=== PATIENT | female | born 1985 | race Caucasian/White ===

== ENCOUNTER → 2020-08-11 17:54 | Outpatient (CLI) | payer BC, SELFPAY ==
--- NOTE | ~2020-08-11 | MM_ITS ---
EXAMINATION: MM screening diana BI w neeraj HISTORY: Baseline screening mammogram TECHNIQUE: Craniocaudal and mediolateral oblique 3-D tomosynthesis images were obtained and synthetic 2-D images were generated. CAD analysis was submitted and interpreted. COMPARISON: None, baseline BREAST PARENCHYMAL COMPOSITION: There are scattered areas of fibroglandular density. FINDINGS: There is no evidence of suspicious mass, calcification, or architectural distortion to sugg est malignancy in either breast. IMPRESSION: 1. No mammographic evidence of malignancy. 2. Recommend routine screening mammography beginning at age 40. BI-RADS Category 1: Negative Reviewed, dictated and finalized at location A.
== END ==
PROVIDERS: PCP Nurse Practitioner Family; Visit Provider Nurse Practitioner
DX: Z12.31 Encounter for screening mammogram for malignant neoplasm of breast (principal)
CPT/HCPCS: 77063; 77067

== ENCOUNTER 2020-09-21 10:05 | Emergency (ER) | payer BC, SELFPAY ==
--- NOTE | ~2020-09-21 | XR_ITS ---
EXAMINATION: XR chest 2V EXAM DATE: 09/21/2020 10:36 INDICATION: cough, shortness of breath, hx. of mediastinal mass . TECHNIQUE: Frontal and lateral projections of the chest obtained and reviewed. Comparison is made to prior examination from 04/30/2019. FINDINGS: Previously seen mediastinal enlargement has normalized, correlate with history of treatmen t. The lungs are clear. There are no pleural effusions. The cardiomediastinal silhouette is within normal limits. There is no pneumothorax suspected. The bones and soft tissues are unremarkable. IMPRESSION: Unremarkable chest x-ray exam. Reviewed, dictated and finalized at location B. 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
--- NOTE | 2020-09-21 10:13 | ED.URI ---
HPI - URI/Sore Throat General Chief Complaint: Upper Respiratory Infection Stated Complaint: upper respiratory infection Time Seen by Provider: 09/21/20 10:13 Source: patient and RN notes reviewed History of Present Illness HPI Narrative: Patient is a 35-year-old female who presents the urgent care with complaints of intermittent shortness of breath and some chest tightness. Patient states that it started on Monday night with a severe sore throat that woke her up out of her sleep. Patient states the sore throat has since subsided. States that she had a low-grade fever a few days ago of 99 and took Tylenol with full relief. Patient states her daughter was also symptomatic with a sore throat and fever last week and her strep and Covid were both negative. Patient states that she is currently not working and stays home the majority of the time. Daughter is currently asymptomatic and no one else in the house has been sick. Patient reports of some postnasal drainage and mild wet cough. States that she does have a history of asthma and her inhaler has been decreasing her symptoms. Patient reports of also having a history of lymphoma with the mass still present in the chest. Patient is currently in remission. No other acute complaints. No acute distress noted. Patient aware of the plan of care. Some parts of this dictation were generated by voice recognition software and may contain typographical and/or grammatical inaccuracies. Related Data Home Medications Medication Instructions Recorded Confirmed escitalopram oxalate 20 mg PO DAILY 09/21/20 09/21/20 fluticasone propionate [Allergy 2 spray INTRANASAL DAILY 09/21/20 09/21/20 Relief (fluticasone)] Allergies Allergy/AdvReac Type Severity Reaction Status Date / Time cefaclor Allergy Mild RASH, GI Verified 09/21/20 10:23 UPSET erythromycin base Allergy Mild RASH, GI Verified 09/21/20 10:23 UPSET Penicillins Allergy Mild RASH, GI Verified 09/21/20 10:23 UPSET Review of Systems Review of Systems: Narrative: CONSTITUTIONAL: Denies fever, chills, or sweats. EYES: Denies visual changes, redness, or discharge. ENT: Reports of postnasal drainage CARDIOVASCULAR: Denies chest pain, palpitations, or edema. RESPIRATORY: Reports of wet cough with intermittent shortness of breath and dyspnea; intermittent mild chest tightness GASTROINTESTINAL: Reports a few episodes of loose stools without abdominal pain, nausea, vomiting GENITOURINARY: Denies dysuria or hematuria. SKIN: Denies rash or itching. MUSCULOSKELETAL: Denies back pain, joint pain; reports of upper back body aches NEUROLOGIC: Denies headache, numbness, or weakness. All other systems reviewed are negative, except as documented in HPI. [facility] Family History Family History (Updated 08/19/16 @ 14:26 by DOCTOR UNKNOWN) Father Diabetes mellitus Hypertension Family history of coronary artery disease Mother Asthma Other Family history of allergic disorder Family history of cardiovascular disease Family history of malignant neoplasm Social History Social History Smoking status: Never smoker Alcohol intake: current Comments At the time of my signature, I reviewed and agree with the nursing past medical, surgical, social, and family history. There is no relevant family history pertinent to the patient complaint. Exam Narrative: Exam Narrative: GENERAL: This is a well-nourished, well-developed patient, in no apparent distress. HEAD: normocephalic, atraumatic. EYES: PERRL. Sclera clear/white. Vision is grossly intact. EARS: External ears normal, auditory canals clear and without drainage, TMs normal without perforation. Hearing grossly intact. NOSE: External nose normal with no obvious nasal discharge, nares without redness, no rhinorrhea. THROAT: Mucous membranes moist, posterior pharynx clear. Mild postnasal drainage NECK: Neck supple CARDIOVASCULAR: Regular rate and rhythm without murmurs, gal
[2020-09-21 10:20] VITALS: BP 141/94; PULSE 97; RESP 24; TEMP 37; O2SAT 100
== END 2020-09-21 11:00 | disposition home or self-care (01) ==
PROVIDERS: Emergency Provider Nurse Practitioner Family; PCP Nurse Practitioner Family
DX: J06.9 Acute upper respiratory infection, unspecified (principal); I10 Essential (primary) hypertension; J45.909 Unspecified asthma, uncomplicated; E28.2 Polycystic ovarian syndrome; Z85.71 Personal history of Hodgkin lymphoma
CPT/HCPCS: 71046; 99213; G0463

== ENCOUNTER 2020-09-25 06:53 | Outpatient (NON) | payer BC, SELFPAY ==
[2020-09-26 23:02] LABS: SARS-CoV-2 RNA PCR Negative
== END 2020-09-25 06:54 ==
LOC: ANHCOVIDDT 07:10
PROVIDERS: PCP Nurse Practitioner Family; Visit Provider Nurse Practitioner Family
DX: Z20.828 Contact with and (suspected) exposure to other viral communicable diseases (principal); R05 Cough; J02.9 Acute pharyngitis, unspecified
CPT/HCPCS: 87635; C9803; U0003

== ENCOUNTER 2020-10-31 08:07 | Emergency (ER) | payer BC, SELFPAY ==
--- NOTE | ~2020-10-31 | XR_ITS ---
EXAMINATION: XR chest 2V DATE: 10/31/2020 08:53 INDICATION: Asthma and mediastinal mass presenting with 6 weeks of cough. TECHNIQUE: PA and lateral views of the chest were obtained. COMPARISON: Chest radiograph dated 09/21/2020 and 04/18/2019 FINDINGS: The lungs remain clear with no focal airspace opacities, pulmonary edema, pleural effusion or pneumot horax. The cardiomediastinal silhouette remains normal with prior resolution of the right superior me diastinal mass seen on the radiographs on 04/18/2019. Visualized bones and soft tissues are unremarkab le. IMPRESSION: 1. Normal chest radiograph. Reviewed, dictated and finalized at location A. 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 Normal chest radiograph.
[2020-10-31 08:21] VITALS: BP 135/87; PULSE 85; RESP 16; TEMP 37.2; O2SAT 98
--- NOTE | 2020-10-31 08:21 | ED.GENADULT ---
HPI - General Adult General Chief complaint: Upper Respiratory Infection Stated complaint: Cough Time Seen by Provider: 10/31/20 08:29 Source: patient Mode of arrival: ambulatory Limitations: no limitations History of Present Illness HPI narrative: 35-year-old female patient presents to the [facility] with complaints of a cough for the past 6 weeks. Patient does have a history of a mediastinal mass which she has been in remission for for over a year. Patient states she had a chest x-ray done about 5 weeks ago and was told that it was stable and did not change in size. Patient states she does have history of asthma and has been using her albuterol for her cough. Patient states that when her symptoms first started she did get Covid tested twice once with a rapid once with the PCR of both came back negative. Patient states that she did run some low-grade fevers in the beginning but now it is just an ongoing cough that has been waking her up at night. Patient states she was put on doxycycline by her doctor for 10 days and did slightly improved but the cough still remains. Denies any fevers, body aches or chills within the last couple of days. Patient does feel little short of breath and wheezy. Patient states she is coughing up some yellow things at times. Denies any abdominal pain, nausea, vomiting or diarrhea. Patient states she has been taking some [id number] Mucinex as well as DayQuil for her symptoms. Related Data Home Medications Medication Instructions Recorded Confirmed albuterol mcg INHALATION 10/31/20 Allergies Allergy/AdvReac Type Severity Reaction Status Date / Time cefaclor Allergy Mild RASH, GI Verified 10/31/20 08:27 UPSET erythromycin base Allergy Mild RASH, GI Verified 10/31/20 08:27 UPSET Penicillins Allergy Mild RASH, GI Verified 10/31/20 08:27 UPSET Review of Systems Review of Systems: Narrative: CONSTITUTIONAL: Denies fever, chills, or sweats. EYES: Denies visual changes, redness, or discharge. ENT: Denies rhinorrhea, congestion, sore throat, or otalgia. CARDIOVASCULAR: Denies chest pain, palpitations, or edema. RESPIRATORY: Positive cough with dyspnea. GASTROINTESTINAL: Denies abdominal pain, nausea, vomiting, or diarrhea. GENITOURINARY: Denies dysuria or hematuria. SKIN: Denies rash or itching. MUSCULOSKELETAL: Denies back pain, joint pain, or myalgia. NEUROLOGIC: Denies headache, numbness, or weakness. PSYCHIATRIC: Denies anxiety or depression. [facility] Past Medical History Medical History Anxiety Elevated BP without diagnosis of hypertension Hodgkin lymphoma Mediastinal mass Microscopic hematuria Mild persistent asthma without complication PCOS (polycystic ovarian syndrome) Vitamin D deficiency, unspecified Family History Family History Father Diabetes mellitus Hypertension Family history of coronary artery disease Mother Asthma Other Family history of allergic disorder Family history of cardiovascular disease Family history of malignant neoplasm Social History Social History Smoking status: Never smoker Alcohol intake: current Comments At the time of my signature I agree with nursing past medical history, surgical, social, and family history. There is no relevant family history pertinent to the presenting complaint. Exam Narrative: Exam Narrative: GENERAL: Well-appearing, well-nourished, and in no acute distress. HEAD: Normocephalic, atraumatic. EYES: PERRLA and EOMI. ENT: Nares clear, no rhinorrhea or epistaxis. Mucous membranes moist. NECK: Supple. No lymphadenopathy CHEST: Patient does have expiratory wheezing noted to the right lower lobe and expiratory and inspiratory wheezing noted to bilateral upper lobes on auscultation. No respiratory distress. Patient is able to talk in clear c
[2020-10-31] MEDS: IPRATROPIUM BR 0.02% INH SOLN 0.5 MG/2.5 ML VIAL INHALATION (08:57)
[2020-10-31] MEDS: ALBUTEROL SULFATE NEB 2.5 MG/3 ML INH INHALATION (09:04)
== END 2020-10-31 09:25 | disposition home or self-care (01) ==
PROVIDERS: Emergency Provider Nurse Practitioner Family; PCP Nurse Practitioner Family
DX: J20.8 Acute bronchitis due to other specified organisms (principal); E28.2 Polycystic ovarian syndrome; J45.30 Mild persistent asthma, uncomplicated; Z85.72 Personal history of non-Hodgkin lymphomas
CPT/HCPCS: 71046; 94640; 99213; G0463

== ENCOUNTER 2021-06-15 11:02 | Emergency (ER) | payer BC, SELFPAY ==
[2021-06-15] VITALS (7 sets, daily range): BP systolic 117–185; BP diastolic 88–125; PULSE 97–119; RESP 14–25; TEMP 36.3; O2SAT 99–100
--- NOTE | ~2021-06-15 | XR_ITS ---
EXAMINATION: XR chest 2V DATE: 06/15/2021 11:41 INDICATION: Cough. Palpitations. COVID-19 positive. TECHNIQUE: Frontal and lateral views of the chest were obtained. COMPARISON: Chest 2 views 10/31/2020 FINDINGS: The chest demonstrates clear lungs without pneumonia, pleural effusion, or pneumothorax. Th e heart size is normal. IMPRESSION: 1. No acute cardiopulmonary disease. Reviewed, dictated and finalized at location B.
--- NOTE | 2021-06-15 11:20 | ECG_ITS ---
Measurements Intervals [place] Rate: 115 P: 42 FL: 137 QRS: 24 QRSD: 89 T: -6 QT: 328 QTc: 454 Interpretive Statements SINUS TACHYCARDIA LOW QRS VOLTAGE IN PRECORDIAL LEADS BORDERLINE ST-T WAVE ABNORMALITY- INFERIOR LEADS BASELINE WANDER- II, III ABNORMAL ECG Electronically Signed On 06-15-2021 11:29:52 CDT by Umberto Peres D.O.
--- NOTE | 2021-06-15 12:24 | ED.ARRPALP ---
HPI - Arrhythmia/Palpitations History of Present Illness HPI narrative: 36 yo female presents to the ED with multiple complaints. She recently had COVID-19. During this time she was started on dexamethasone. A few days armond she began having various symptoms. She reports hyperactivity, insommnia, diaphoresis, tachycardia. She says that she feels like she could conquer the world. Additionally she mentions that she almost purchased some land that she does not need. She had similar, although milder symptoms when she was on dexamethasone in the past. She had her last dose about 1 week ago. Related Data Home Medications Medication Instructions Recorded Confirmed albuterol mcg INHALATION 10/31/20 Allergies Allergy/AdvReac Type Severity Reaction Status Date / Time cefaclor Allergy Mild RASH, GI Verified 06/15/21 12:40 UPSET erythromycin base Allergy Mild RASH, GI Verified 06/15/21 12:40 UPSET Penicillins Allergy Mild RASH, GI Verified 06/15/21 12:40 UPSET Review of Systems Review of Systems: All systems reviewed & are unremarkable except as noted in HPI and below Constitutional: Constitutional: Denies fever(s) and Denies weakness Eyes: Eyes: Reports no additional eye complaints ENT: Denies dizziness Cardiovascular: Cardiovascular: Reports chest pain (mild, anterior, better with massaging), Reports rapid heart rate and Denies radiating jaw, neck or arm pain Respiratory: Respiratory: Denies dyspnea Gastrointestinal: Gastrointestinal: Denies nausea Genitourinary: Genitourinary: Reports no additional female genitourinary complaints Musculoskeletal: Musculoskeletal: Denies back pain Neurologic: Denies confusion, Denies numbness and Denies weakness Psychiatric: Psychiatric: Reports abnormal sleep pattern, Denies homicidal ideation and Denies suicidal ideation Endocrine: Endocrine: Reports excessive sweating and Denies polyuria PMFSH Past Medical History Medical History Anxiety Elevated BP without diagnosis of hypertension Hodgkin lymphoma Mediastinal mass Microscopic hematuria Mild persistent asthma without complication PCOS (polycystic ovarian syndrome) Vitamin D deficiency, unspecified Family History Family History Father Diabetes mellitus Hypertension Family history of coronary artery disease Mother Asthma Other Family history of allergic disorder Family history of cardiovascular disease Family history of malignant neoplasm Social History Social History Smoking status: Never smoker Alcohol intake: current Gender identity (if verbalized by the patient): Female Exam Const: General: healthy appearing, no acute distress and alert Orientation/consciousness: patient oriented x3 Other: Diaphoretic HENMT: Head: normal to inspection General nose exam: Epistaxis present Face and sinus: normal facial exam and dry mucous membranes Eyes: Conjunctivae: conjunctivae normal Pupils: Equal, round and reactive pupils present EOM: EOMs intact bilaterally Neck: Neck: normal visual inspection Chest: Chest palpation & inspection: no tenderness Resp: Effort & Inspection: normal respiratory effort Auscultation: clear to auscultation bilaterally, no rales, no rhonchi and no wheezes Cardio: Jugular venous distension: no JVD Rate: tachycardic Rhythm: regular rhythm Heart sounds: no murmurs GI: Inspection: non-distended GI Palp: Yes Soft to palpation and No Tenderness to palpation present (GI) Skin: General skin exam: normal color Neuro: General: patient oriented x3, moves all extremities and CN's II-XI intact bilaterally Cognition (Neuro): normal cognition Speech: normal speech Extrem: General: no edema Psych: Appearance: grossly normal and well kempt Speech and movement: Clear speech present and Pressur
[2021-06-15] MEDS: SODIUM CHLORIDE 0.9% IV 1,000 ML 999 ML IV CONT (12:38)
[2021-06-15 12:41] LABS: Basophils Absolute Auto 0.1 K/mm3 (0.0-0.1); Basophils Percent Auto 0.6 % (0.2-1.2); Eosinophils Absolute Auto 0.2 K/mm3 (0-0.3); Eosinophils Percent Auto 2.1 % (0-4.4); Hematocrit 43.6 % (37.0-47.0); Hemoglobin 14.4 g/dL (12.0-15.0); Immature Granulocyte Absolute 0.03 K/mm3 (0.00-0.031); Immature Granulocyte Percent A 0.4 % (0-0.5); Lymphocytes Absolute Auto 2.37 K/mm3 (0.9-3.2); Lymphocytes Percent Auto 29.8 % (18.3-44.2); Mean Corpuscular Hemoglobin 29.4 pg (26-34); Mean Corpuscular Volume 89.2 fl (80-100); Mean Platelet Volume 10.4 fl (7.4-10.4); Monocytes Absolute Auto 0.6 K/mm3 (0.1-0.6); Monocytes Percent Auto 7.7 % (2.6-8.5); Neutrophils Absolute Auto 4.7 K/mm3 (1.3-6.7); Neutrophils Percent Auto 59.4 % (45.5-73.1); Platelet Count Result 327 k/mm3 (150-375); Red Blood Count 4.89 M/mm3 (4.2-5.4); Red Cell Distribution Width 13.2 % (11.5-14.5)
[2021-06-15 12:52] LABS: INR 0.9; Prothrombin Time 12.2 Seconds (11.1-14.7)
[2021-06-15 12:53] LABS: Anion Gap 7 mmol/L (8-16); Blood Urea Nitrogen 12 mg/dL (7-17); Calcium 10.1 mg/dL (8.4-10.2); Carbon Dioxide 26 mmol/L (22-30); Chloride 107 mmol/L (98-107); Estimated CRCL calculation 154 ml/min; Estimated Glomerular Filt Rate > 60; Glucose 163 mg/dL (65-110); Partial Thromboplastin Time 22.1 SECONDS (22.3-36.8); Potassium 3.9 mmol/L (3.4-5.0); Sodium 140 mmol/L (137-145)
--- NOTE | 2021-06-15 12:55 | PC.NURSE ---
called lab and talked to Vonnie added on a CMP, MG, and TSH at 1254
--- NOTE | 2021-06-15 13:01 | PC.NURSE ---
Added on lab specimen.
--- NOTE | 2021-06-15 13:41 | PC.NURSE ---
called lab about add ons. states they are next.
--- NOTE | 2021-06-15 14:40 | PC.NURSE ---
Called about [facility], and CMP to see if they have been ran.
[2021-06-15 14:50] LABS: Alanine Aminotransferase 75 U/L (4-35); Albumin Level 4.4 g/dL (3.5-5.1); Alkaline Phosphatase 49 U/L (38-126); Anion Gap 9 mmol/L (8-16); Aspartate Amino Transferase 55 U/L (14-36); Bilirubin,Total 0.6 mg/dL (0.2-1.3); Blood Urea Nitrogen 12 mg/dL (7-17); Calcium 10.1 mg/dL (8.4-10.2); Carbon Dioxide 25 mmol/L (22-30); Chloride 106 mmol/L (98-107); Estimated CRCL calculation 154 ml/min; Estimated Glomerular Filt Rate > 60; Glucose 159 mg/dL (65-110); Potassium 3.8 mmol/L (3.4-5.0); Sodium 140 mmol/L (137-145)
[2021-06-15] MEDS: METOPROLOL SUCCINATE EXT REL 50 MG TABCR PO (15:06)
[2021-06-15 15:24] LABS: Thyroid Stimulating Hormone 0.919 uIU/mL (0.465-4.680)
== END 2021-06-15 16:25 | disposition home or self-care (01) ==
PROVIDERS: Emergency Medicine; Emergency Provider Emergency Medicine; PCP Nurse Practitioner Family
DX: F30.8 Other manic episodes (principal); I10 Essential (primary) hypertension; Z86.16 Personal history of COVID-19; E28.2 Polycystic ovarian syndrome; E55.9 Vitamin D deficiency, unspecified; J45.30 Mild persistent asthma, uncomplicated; Z85.72 Personal history of non-Hodgkin lymphomas; T38.0X5A Adverse effect of glucocorticoids and synthetic analogues, initial encounter
CPT/HCPCS: 36415; 71046; 80048; 80053; 83735; 84443; 85025; 85610; 85730; 93005; 96360; 99284; A9270; J7030

== ENCOUNTER → 2021-11-05 12:41 | Outpatient (CLI) | payer BC, SELFPAY ==
--- NOTE | ~2021-11-05 | MM_ITS ---
EXAMINATION: MM screening diana BI w neeraj HISTORY: Screening mammogram TECHNIQUE: Craniocaudal and mediolateral oblique 3-D tomosynthesis images were obtained and synthetic 2-D images were generated. CAD analysis was submitted and interpreted. COMPARISON: 08/11/2020 BREAST PARENCHYMAL COMPOSITION: There are scattered areas of fibroglandular density. FINDINGS: There is no evidence of suspicious mass, calcification, or architectural distortion to sugg est malignancy in either breast. There has been no suspicious interval change. IMPRESSION: 1. No mammographic evidence of malignancy. 2. Recommend routine screening mammography in one year. BI-RADS Category 1: Negative Reviewed, dictated and finalized at location A. 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
== END ==
PROVIDERS: PCP Nurse Practitioner Family; Visit Provider Nurse Practitioner
DX: Z12.31 Encounter for screening mammogram for malignant neoplasm of breast (principal)
CPT/HCPCS: 77063; 77067

== ENCOUNTER 2022-10-17 10:47 | Outpatient (NON) | payer BC, SELFPAY | END 2022-10-17 10:48 | disposition home or self-care (01) | LOC: ANHLAB 11:46 | PROVIDERS: PCP Nurse Practitioner Family; Visit Provider Nurse Practitioner | DX: C44.219 Basal cell carcinoma of skin of left ear and external auricular canal (principal) | CPT/HCPCS: 88305; 88331 ==

== ENCOUNTER → 2022-11-28 07:32 | Outpatient (CLI) | payer BC, SELFPAY ==
--- NOTE | ~2022-11-28 | MM_ITS ---
EXAMINATION: MM screening diana BI w neeraj HISTORY: Screening TECHNIQUE: Craniocaudal and mediolateral oblique 3-D tomosynthesis images were obtained and synthetic 2-D images were generated. CAD analysis was submitted and interpreted. COMPARISON: Comparison to multiple prior studies sequentially, with oldest reviewed study dated 07/30. BREAST PARENCHYMAL COMPOSITION: There are scattered areas of fibroglandular density. FINDINGS: There is no evidence of suspicious mass, calcification, or architectural distortion to sugg est malignancy in either breast. There has been no suspicious interval change. IMPRESSION: 1. No mammographic evidence of malignancy. 2. Recommend routine screening mammography in one year. BI-RADS Category 1: Negative Reviewed, dictated and finalized at location A. N MAN
== END ==
PROVIDERS: PCP Nurse Practitioner Family; Visit Provider Obstetrics & Gynecology Gynecology
DX: Z12.31 Encounter for screening mammogram for malignant neoplasm of breast (principal)
CPT/HCPCS: 77063; 77067

== ENCOUNTER 2023-03-07 10:03 | Outpatient (CLI) | payer OTHER, SELFPAY ==
--- NOTE | ~2023-03-07 | XR_ITS ---
Cervical Spine: AP, lateral, open-mouth views, with neutral, flexion, and extension positioning Clinical History: Pain Findings: There is straightening of the normal cervical lordosis. No instability evident on flexion o r extension. The vertebral bodies and posterior elements appear intact. The intervertebral disc spac es are well maintained. Pre-vertebral soft tissues are unremarkable. Impression: Straightening of the normal cervical lordosis, otherwise unremarkable exam. Reviewed, dictated and finalized at location M. Impression: Straightening of the normal cervical lordosis, otherwise unremarkable exam.
--- NOTE | ~2023-03-07 | XR_ITS ---
Lumbosacral Spine: AP, oblique, and lateral views Clinical History: Pain Findings: The normal lordotic curve is maintained. No fracture identified. 4 mm anterolisthesis of L4 over L5 present. There is moderate degenerative disc change at L1-L2. The sacroiliac joints are norm ally outlined. Impression: 4 mm anterolisthesis of L4 over L5. Moderate degenerative disc narrowing at L1-L2. Reviewed, dictated and finalized at location . Impression: 4 mm anterolisthesis of L4 over L5. Moderate degenerative disc narrowing at L1-L2.
== END 2023-03-07 10:04 ==
PROVIDERS: PCP Nurse Practitioner Family
DX: M54.50 Low back pain, unspecified (principal); M54.16 Radiculopathy, lumbar region; V89.2XXA Person injured in unspecified motor-vehicle accident, traffic, initial encounter; M48.061 Spinal stenosis, lumbar region without neurogenic claudication
CPT/HCPCS: 72050; 72110

== ENCOUNTER 2023-03-21 11:25 | Outpatient (NON) | payer BC, SELFPAY | END 2023-03-21 11:26 | disposition home or self-care (01) | PROVIDERS: PCP Nurse Practitioner Family; Visit Provider Nurse Practitioner | DX: D22.4 Melanocytic nevi of scalp and neck (principal) | CPT/HCPCS: 88305 ==

== ENCOUNTER 2023-05-01 13:05 | Emergency (ER) | payer BC, SELFPAY ==
--- NOTE | 2023-05-01 13:07 | ED.URI ---
HPI - URI/Sore Throat General Chief Complaint: Upper Respiratory Infection Stated Complaint: Cough,Headache,Congestion,Body Aches Time Seen by Provider: 05/01/23 13:22 Source: patient, RN notes reviewed and old records reviewed Mode of arrival: ambulatory Limitations: no limitations History of Present Illness HPI Narrative: 38-year-old female presents to the [facility] with complaints of cough, headache, congestion and body aches that started Monday, 5 days ago. Reports 2- COVID tests at home were negitive. Onset (ago): day(s) (5) Treatments prior to arrival: none Related Data Home Medications Medication Instructions Recorded Confirmed escitalopram oxalate 10 mg tablet 10 mg PO DAILY 05/01/23 05/01/23 spironolactone 100 mg tablet 100 mg PO DAILY 05/01/23 05/01/23 Allergies Allergy/AdvReac Type Severity Reaction Status Date / Time cefaclor AdvReac Intermediate RASH, GI Verified 05/01/23 13:09 UPSET erythromycin base AdvReac Intermediate RASH, GI Verified 05/01/23 13:09 UPSET Penicillins AdvReac Intermediate RASH, GI Verified 05/01/23 13:09 UPSET Review of Systems Review of Systems: All systems reviewed & are unremarkable except as noted in HPI and below Constitutional: Constitutional: Reports no additional constitutional complaints Eyes: Eyes: Reports no additional eye complaints ENT: Reports as per HPI Cardiovascular: Cardiovascular: Reports no additional cardiovascular complaints, Denies chest pain and Denies dyspnea Respiratory: Respiratory: Reports as per HPI, Denies chest congestion, Reports cough and Denies dyspnea Gastrointestinal: Gastrointestinal: Reports no additional gastrointestinal complaints, Denies abdominal pain, Denies nausea and Denies vomiting Musculoskeletal: Musculoskeletal: Reports no additional musculoskeletal complaints Integumentary/Breasts: Skin/Breast: Reports system reviewed and no additional complaints, except as docu Neurologic: Reports system reviewed and no additional complaints, except as documented Psychiatric: Psychiatric: Reports no additional psychiatric complaints Allergic/Immunologic: Allergic/Immunologic: Reports no additional allergic/immunologic complaints PMFSH Past Medical History Medical History Anxiety Elevated BP without diagnosis of hypertension Hodgkin lymphoma Mediastinal mass Microscopic hematuria Mild persistent asthma without complication PCOS (polycystic ovarian syndrome) Vitamin D deficiency, unspecified Family History Family History Father Diabetes mellitus Hypertension Family history of coronary artery disease Mother Asthma Other Family history of allergic disorder Family history of cardiovascular disease Family history of malignant neoplasm Social History Social History Smoking status: Never smoker Alcohol intake: current Gender identity (if verbalized by the patient): Female Comments At the time of my signature, I reviewed and agree with the nursing past medical, surgical, social, and family history. There is no relevant family history pertinent to the patient complaint. Exam Const: General: cooperative, healthy appearing, comfortable, no acute distress, well developed, alert and well nourished Nutritional Appearance: well nourished Orientation/consciousness: patient oriented x3 Limitations: no limitations HENMT: Head: normal to inspection Ears: hearing grossly normal bilaterally and external ears normal Face/Nose/Sinus: Normal external nose present, Normal nares present, Normal nasal mucous membranes and turbinates present and normal facial exam Face and sinus: normal facial exam Mouth: Yes Normal oral and palatal mucosa present, Yes lip normal and Yes moist mucous membranes Throat: posterior oropharynx normal, uvula midline, postn
[2023-05-01 13:17] VITALS: BP 133/84; PULSE 107; RESP 16; TEMP 36.7; O2SAT 99
== END 2023-05-01 13:41 | disposition home or self-care (01) ==
PROVIDERS: Emergency Provider Nurse Practitioner; PCP Nurse Practitioner Family
DX: J06.9 Acute upper respiratory infection, unspecified (principal); Z20.822 Contact with and (suspected) exposure to COVID-19; F41.9 Anxiety disorder, unspecified; J45.909 Unspecified asthma, uncomplicated; E28.2 Polycystic ovarian syndrome
CPT/HCPCS: 87081; 87426; 87804; 87880; 99213; C9803; G0463

== ENCOUNTER 2023-08-15 08:56 | Outpatient (CLI) | payer BC, SELFPAY ==
--- NOTE | ~2023-08-15 | MMUS_ITS ---
EXAMINATION: MM diagnostic diana LT w neeraj, US breast LT limited HISTORY: Palpable left breast abnormality TECHNIQUE: Additional 3-D tomosynthesis images of the left breast were performed and synthetic 2-D im ages were generated. CAD analysis was submitted and interpreted. High resolution Limited left breast ultrasound was performed. COMPARISON: Comparison to multiple prior studies sequentially, with oldest reviewed study dated 07/30. BREAST PARENCHYMAL COMPOSITION: BREAST PARENCHYMAL COMPOSITION: There are scattered areas of fibroglandular density. FINDINGS: MAMMOGRAPHIC FINDINGS: There are no suspicious masses, calcifications or architectural distortion in the left breast to sugg est malignancy. ULTRASOUND: Limited left breast ultrasound: Normal heterogeneous echotexture without focal solid or cystic mass. IMPRESSION: 1. No evidence for malignancy in the left breast. 2. Routine yearly screening mammogram and regular clinical breast examination are recommended. BI-RADS Category 1: Negative Reviewed, dictated and finalized at location A. IMPRESSION: 1. No evidence for malignancy in the left breast. 2. Routine yearly screening mammogram and regular clinical breast examination a re recommended. BI-RADS Category 1: Negative
== END 2023-08-15 08:57 ==
PROVIDERS: PCP Advanced Practice Midwife; Visit Provider Advanced Practice Midwife
DX: N63.20 Unspecified lump in the left breast, unspecified quadrant (principal); R92.8 Other abnormal and inconclusive findings on diagnostic imaging of breast
CPT/HCPCS: 76642; 77061; 77065; G0279

== ENCOUNTER 2023-11-22 17:08 | Emergency (ER) | payer BC, SELFPAY ==
[2023-11-22 17:23] VITALS: BP 116/78; PULSE 95; RESP 16; TEMP 37.1; O2SAT 98
[2023-11-22 17:24] VITALS: PULSE 95; RESP 16; TEMP 37.1; O2SAT 98
--- NOTE | 2023-11-22 17:29 | ED.BACK ---
HPI - Back Pain/Injury General Chief Complaint: Extremity Injury, Upper Stated Complaint: upper body stiffness Time Seen by Provider: 11/22/23 17:30 Source: patient and RN notes reviewed Mode of arrival: ambulatory Limitations: no limitations History of Present Illness HPI Narrative: 38-year-old female presents concern for 5 day history of upper back/neck and shoulder pain. Reports it is worse on the right. She reports a pulsating feeling in her right trapezius muscle. She reports pain it is worsened with movements of the neck and the right arm. She denies any injury or trauma. She reports she has taken Tylenol, used ice and heat, massage. She denies weakness, numbness in either upper extremity. Reports pain radiates down toward her right arm. 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 She is due to see the oral surgeon who did her Botox next week, she also has an appoint with her primary care provider. MD elicited complaint: other (neck and shoulder pain) Related Data Home Medications Medication Instructions Recorded Confirmed escitalopram oxalate 10 mg tablet 10 mg PO DAILY 05/01/23 11/22/23 spironolactone 100 mg tablet 100 mg PO DAILY 05/01/23 11/22/23 lorazepam 0.5 mg tablet mg 11/22/23 11/22/23 metformin 1,000 mg tablet mg 11/22/23 11/22/23 Allergies Allergy/AdvReac Type Severity Reaction Status Date / Time adhesive tape Allergy Rash Verified 11/22/23 17:23 cefaclor AdvReac Intermediate RASH, GI Verified 11/22/23 17:23 UPSET erythromycin base AdvReac Intermediate RASH, GI Verified 11/22/23 17:23 UPSET Penicillins AdvReac Intermediate RASH, GI Verified 11/22/23 17:23 UPSET Review of Systems Review of Systems: CONSTITUTIONAL: Denies malaise, chills, sweats, or fever. CARDIOVASCULAR: Denies chest pain, palpitations, or edema. RESPIRATORY: Denies cough or dyspnea. SKIN: Denies rash or itching. MUSCULOSKELETAL: Reports right neck and shoulder pain, left neck and shoulder pain, right is worse than the left NEUROLOGIC: Denies numbness, weakness, or headache. All systems reviewed & are unremarkable except as noted in HPI and below PMFSH Past Medical History Medical History Anxiety Elevated BP without diagnosis of hypertension Hodgkin lymphoma Mediastinal mass Microscopic hematuria Mild persistent asthma without complication PCOS (polycystic ovarian syndrome) Vitamin D deficiency, unspecified Family History Family History Father Diabetes mellitus Hypertension Family history of coronary artery disease Mother Asthma Other Family history of allergic disorder Family history of cardiovascular disease Family history of malignant neoplasm Social History Social History Smoking status: Never smoker Alcohol intake: current Gender identity (if verbalized by the patient): Female Comments At time of signature, agree with nursing past medical, surgical, social and family history. There is no relevant family history pertinent to the presenting complaint Exam Narrative: GENERAL: Well-appearing, well-nourished, and in no acute distress. HEAD: Normocephalic, atraumatic. EYES: PERRLA and EOMI. NECK: Supple. No lymphadenopathy. CHEST: Clear to auscultation. No respiratory distress. HEART: Regular rate and rhythm. Distal pulses palpable and equal, cap refill <3 seconds MUSCULOSKELETAL: Normal range of motion and strength in all extremities; 5/5 strength with hip flexion and extension, dorsiflexion and extension, knee flexion and extension, plantar flexion and extension. Normal sensation in dermatomal distributions with sensitivity to light touch and pain. No midline neck, shoulder, back tenderness to palpation. No paraspinal tenderness. Transfe
== END 2023-11-22 17:48 | disposition home or self-care (01) ==
PROVIDERS: Emergency Provider Nurse Practitioner; PCP Nurse Practitioner Family
DX: M54.2 Cervicalgia (principal); J45.909 Unspecified asthma, uncomplicated; E28.2 Polycystic ovarian syndrome; F41.9 Anxiety disorder, unspecified; Z85.71 Personal history of Hodgkin lymphoma
CPT/HCPCS: 99213; G0463

== ENCOUNTER 2025-09-19 15:42 | Emergency (ER) | payer BC, SELFPAY ==
--- OUTSIDE RECORDS SUMMARY | 2025-09-19 15:46 | XMS_ITS | Encounter Summary ---
Author Organization [facility] Address [address] [place] [address] Care Team Providers Care Enroute Controller Name Role Phone Melinda Odonnell Primary Care Provider [phone] Encounter Details Date Type Department Care Team (Late st Contact Info) Description 07/28/2021 Abstract [facility] Operating Room [address] [address] Kristie Shepherd RN Social History Tobacco Use Types Packs/Day Years Used Date Smoking Tobacco: Never Smokeless Tobacco: Never Alcohol Use Standard Drinks/Week Comments Yes 0 (1 standard drink = 0.6 oz pur e alcohol) once a month Comments No Sex and Gender Information Value Date Recorded Sex Assigned at Not on file Legal Sex Female 11:29 AM CDT Gender Identity Not on file Sexual Orientation Not on file documented as of this encounter Plan of Treatment Not on file documented as of this encounter Visit Diagnoses Not on filedocumented in this encounter Care Teams Enroute Controller Relationship Specialty Start Date End Date Melinda Odonnell FNP [address] [place] [phone] PCP - General Nurse Practitioner Family 06/01/21 documented as of this encounter
--- OUTSIDE RECORDS SUMMARY | 2025-09-19 15:46 | XMS_ITS ---
Author Organization [facility] Address [address] [place] [address] Care Team Providers Care Pulp Grinder Feeder Name Role Phone Melinda Odonnell NP Primary Care Provider [phone] Nitish Calderon MD Unavailable [phone] Sita Reddy FISCAL SPECIALIST Unavailable Active Problems Problem Noted Date Diagnosed Date Colitis 06/02/2024 Assessment & Plan (06/03/2024 4:40 PM CDT): Admitted with 3d hx of abdominal pain with associated nausea and reduced po intake following initiation of GLP-1/tirzepatide [address] abd/pel on admission with focal stranding suggestive of sigmoid colitis vs diverticulitis (latter less likely given lack of diverticula elsewhere). Possible medication side effect? Cover for infectious etiologies as well. WBC 13 on admission - Reports symptoms more concerning for ulcer or GERD. - started PPI and GI cocktail at discharge - Hx of childhood allergy. Okay to start IV CTX (06/01-06/03) given remote Hx and ceclor tends to have harsher side effect profile. IV flagyl (06/01-06/03) until able to tolerate po. Transitioned to Cefdinir/PO Flagyl at discharge for a 5 day course total. - avoid penicillins due to allergy - s/p 1L LR bolus - tolerated regular diet prior to discharge - prn antiemetics and analgesics Asthma 06/02/2024 Assessment & Plan (06/02/2024 5:36 PM CDT): Stable. Continue prn albuterol. Not on maintenance inhalers PCOS (polycystic ovarian syndrome) 06/02/2024 Assessment & Plan (06/02/2024 5:37 PM CDT): Prescribed spironolactone and metformin. Has not taken for 1 month as was on vacation. Resume outpatient Family history of thyroid cancer 11/03/2023 Basal cell carcinoma (BCC) 11/03/2023 Family history of renal cancer 11/03/2023 Hypertension 08/09/2021 Anxiety and depression 08/09/2021 Assessment & Plan (06/02/2024 5:35 PM CDT): Cont home lexapro. Intermittently uses low dose lorazapam at night to help with sleep Acute non-recurrent frontal sinusitis 07/02/2019 SOB (shortness of breath) 07/02/2019 Vitamin D deficiency 07/02/2019 Hodgkin lymphoma of lymph nodes of multiple katina ons 05/13/2019 Assessment & Plan (06/02/2024 5:34 PM CDT): Hx of Hodkin's lymphoma s/p chemotherapy 04/2019-08/2019 now in remission. Follows onc outpatient for monitoring Current Treatment and Therapy Plans No current plan information found. Past Treatment and Therapy Plans Line Care Plan Name Start Date Discontinue Date Treatment Medications Discontinue Reason Plan Provider IV MAINTENANCE THERAPY PLAN 07/15/2019 09/23/2019 No medications scheduled. Therapy Complete Nitish Calderon MD Oncology Chemotherapy Treatment Plan Name Start Date Discontinue Date Treatment Medications Discontinue Reason Plan Provider Cycles ABVD: DOXOrubicin (ADRIAMYCIN) / Bleomycin / VinBLAStine / Dacarbazine 28 Day Cycles - Hodgkin 9 09/17/2019 bleomycin (BLENOXANE)bleomy nena (BLEOCIN) IVPBdacarbazine (DTIC)dacarbazine (DTIC) IVPBDOXOrubicin (ADRIAMYCIN)DOXOr ubicin (ADRIAMYCIN) 2 mg/mLvinBLAStinev inBLAStine (VELBAN) IVPB in 50 mL Therapy Complete Nitish Calderon MD 4 of 4 cycles started Lifetime Dose Tracking * Chemical Lifetime Dose Automatic Entry Manual Entr y doxorubicin 193.895 mg/m2 (424 mg) 193.895 mg/m2 (424 mg) 0 mg/m2 (0 mg) bleomycin 149.1 Units 149.1 Units 0 Units Fluoro Time 0.2 minutes 0.2 minutes 0 minutes doxorubicin isotoxic equivalent (Please manually verify calculation) 193.895 mg/m2 (424 mg) 193.895 mg/m2 (424 mg) 0 mg/m2 (0 mg) Air kerma at the reference point (Ka,r) 2.6 mGy 2.6 mGy 0 mGy DLP 7,453 mGycm 7,453 mGycm 0 mGycm
--- OUTSIDE RECORDS SUMMARY | 2025-09-19 15:46 | XMS_ITS | Encounter Summary ---
Author Organization [facility] Address [address] [place] [address] Care Team Providers Care Dental Internship Name Role Phone Melinda Odonnell Primary Care Provider [phone] Encounter Details Date Type Department Care Team (Late st Contact Info) Description 07/23/2020 MyChart Message Enc [facility] Family & Internal Medicine [address] [address] Melinda Odonnell FNP [facility] [place], [place] [phone] RE: FW: Question Social History Tobacco Use Types Packs/Day Years Used Date Smoking Tobacco: Never Smokeless Tobacco: Never Alcohol Use Standard Drinks/Week Comments Yes 0 (1 standard drink = 0.6 oz pur e alcohol) AUDIT-C Answer Date Recorded Frequency of Alcohol Consumption 2-4 times a mon10/07/2019 Average Number of Drinks 1 or 2 019 Frequency of Binge Drinking Never 06/2019 PHQ-2 Answer Date Recorded PHQ-2 Score 0 11/29/2019 Comments No Sex and Gender Information Value Date Recorded Sex Assigned at Female 12/31/2024 2:46 PM DIRECTOR ADULT Legal Sex Female 9:37 AM CDT Gender Identity Not on file Sexual Orientation Not on file documented as of this encounter Progress Notes * REE Devi - 07/24/2020 4:40 PM CDT I feel like she should still get tested. documented in this encounter Plan of Treatment Upcoming Encounters Date Type Department Care Team (Late st Contact Info) Description 10/27/2025 1:[address] [facility] [place] [address] Marija Escobar NP [address] [place], [place] [id number] 02/23/2026 9:00 AM CDT Office Visit [facility] [address] [place] [address] Behzad Cuellar MD [address] [place] [address] documented as of this encounter Visit Diagnoses Not on filedocumented in this encounter Additional Health Concerns Infection Onset Date Last Indicated Resolved Time COVID-19 Rule Out 09/23/2020 09/25/2020 10/06/2020 12:44 PM DIRECTOR ADULT COVID-19 Rule Out 05/21/2021 05/21/2021 05/23/2021 12:58 PM CDT COVID-19 Confirmed 05/21/2021 05/21/2021 12:35 AM CDT COVID-19 Rule Out 06/18/2024 06/18/2024 06/18/2024 11:47 AM CDT COVID-19 Confirmed 06/18/2024 06/18/2024 12:32 AM CDT Assessment Noted Time PHQ-9 Depression Total Score: 4 11/29/19 20 8:55 AM DIRECTOR ADULT documented as of this encounter Care Teams Dental Internship Relationship Specialty Start Date End Date Melinda Odonnell FNP [address] [place] [address] PCP - General Nurse Practitioner Family 04/25/19 documented as of this encounter
--- OUTSIDE RECORDS SUMMARY | 2025-09-19 15:46 | XMS_ITS | Encounter Summary ---
Author Organization [facility] Address [address] [place] [address] Care Team Providers Care Lathe Operator Contact Lens Name Role Phone Melinda Odonnell Primary Care Provider [phone] Encounter Details Date Type Department Care Team (Late st Contact Info) Description 08/25/2021 Endonovo Therapeuticst Message Enc [facility] Medical Group Family & Internal Medicine [address] [address] Melinda Odonnell FNP [address] [place] [phone] RE: Follow Up/Update Social History Tobacco Use Types Packs/Day Years Used Date Smoking Tobacco: Never Smokeless Tobacco: Never Alcohol Use Standard Drinks/Week Comments Not Currently 0 (1 standard drink = 0.6 oz pur e alcohol) AUDIT-C Answer Date Recorded Frequency of Alcohol Consumption 2-4 times a mon10/07/2019 Average Number of Drinks 1 or 2 019 Frequency of Binge Drinking Never 06/2019 PHQ-2 Answer Date Recorded PHQ-2 Score - If the patient scores above 3, please move on to questions 3-9 0 04/12/2021 Comments No Sex and Gender Information Value Date Recorded Sex Assigned at Female 12/31/2024 2:46 PM ENGINEER OF SYSTEM DEVELOPMENT Legal Sex Female 9:37 AM CDT Gender Identity Not on file Sexual Orientation Not on file COVID-19 Exposure Response Date Recorded In the last month, have you been in contact with someone who was confirmed or suspected to have Coronavirus / COVID-19? Unable to assess 08/25/2021 6:34 AM CDT documented as of this encounter Plan of Treatment Upcoming Encounters Date Type Department Care Team (Late st Contact Info) Description 10/27/2025 1:30 PM ENGINEER OF SYSTEM DEVELOPMENT [facility]ment [facility] [place] [address] Marija Escobar NP [address] [place] [address] 02/23/2026 9:00 AM CDT Office Visit [facility] [address] [place] [address] Behzad Cuellar MD [address] [place] [address] documented as of this encounter Visit Diagnoses Not on filedocumented in this encounter Additional Health Concerns Infection Onset Date Last Indicated Resolved Time COVID-19 Rule Out 06/18/2024 06/18/2024 06/18/2024 11:47 AM CDT COVID-19 Confirmed 06/18/2024 06/18/2024 12:32 AM CDT Assessment Noted Time PHQ-9 Depression Total Score: 12 04/12/ 021 12:04 PM CDT documented as of this encounter Care Teams Lathe Operator Contact Lens Relationship Specialty Start Date End Date Melinda Odonnell FNP [address] [place] [address] PCP - General Nurse Practitioner Family 04/25/19 documented as of this encounter
--- OUTSIDE RECORDS SUMMARY | 2025-09-19 15:46 | XMS_ITS | Clinical Summary ---
Author Organization [facility] Address [address] [place] [address] Phone Care Team Providers Care Carpenter Inspector Name Role Phone Melinda Odonnell CHEMICAL TANK WORKER Primary Care Provider [phone] Allergies Active Allergy Reactions Criticality Noted Date Comments Adhesive Rash Low 06/09/2021 Ceclor Cd Rash Low 06/09/2021 Erythromycin Rash,Abdominal Pain Low 06/09/2021 Penicillins Rash,Abdominal Pain Low 06/09/2021 Medications escitalopram oxalate (LEXAPRO) 20 mg tablet Take 20 mg by mouth daily. Active cetirizine (ZyrTEC) 10 mg tablet Take 10 mg by mouth daily. Active fluticasone propionate (FLONASE) 50 mcg/spray [place], Suspension nasal inhaler Administer 2 Sprays in each nostril daily. Active omeprazole (PriLOSEC) 20 mg Capsule, Delayed Release(E.C.) Take 20 mg by mouth daily with lunch. Active albuterol sulfate 90 mcg/Actuation inhaler Take 2 Puffs by inhalation every 6 hours as needed for Shortness of Breath. Active LORazepam (ATIVAN) 0.5 mg tablet Take 0.5 mg by mouth nightly as needed for Anxiety. Active tiotropium (SPIRIVA) 18 mcg capsule Take 18 mcg by inhalation 2 times daily. Active HYDROcodone-chaitanya taminophen (HYCET) 7.5-325 mg/15 mL SolutionIndicat ions:Preop testing Take 15 mL by mouth every 6 hours as needed for Pain, Severe. Max Daily Amount: 60 mL 300 mL 08/10/2021 12:46 PM CDT Active ondansetron (Zofran ODT) 4 mg Tablet, Rapid Dissolve Dissolve 1 tablet on top of tongue, then swallow with saliva every 6 hours as needed for Nausea/Vomiting . 28 Tablet 08/10/2021 12:46 PM CDT Active Active Problems Problem Noted Date Diagnosed Date General medical exam 08/09/2021 Hypertension 08/09/2021 Mild intermittent asthma without complication H/O seasonal allergies 08/09/2021 Anxiety and depression 08/09/2021 Snoring 08/09/2021 Family History Medical History Relation Name Comments Healthy Daughter Anxiety Father Depression Father Diabetes Father Heart Disease Father Breast Cancer Maternal Grandmother Anxiety Sister Other Sister Relation Name Status Comments Daughter Alive Father Alive Maternal Grandmother Mother Alive Sister Alive Social History Tobacco Use Types Packs/Day Years [...] on file Sexual Orientation Not on file Last Filed Vital Signs Vital Sign Reading Time Taken Comments Blood Pressure 134/69 08/10/2021 12:14 PM CDT Pulse 79 08/10/2021 12:14 PM CDT Temperature 37.4 C (99.3 F) 08/10/2021 12:14 PM CDT Respiratory Rate 18 08/10/2021 12:1 4 PM CDT Oxygen Saturation 95% 08/10/2021 12: 14 PM CDT Inhaled Oxygen Concentration - - Weight 127.2 kg (280 lb 6.4 oz) 08/10/2021 3:00 AM CDT Height 167.6 cm (5' 6) 08/09/2021 10:1 5 AM CDT Body Mass Index 45.26 08/09/2021 10:15 AM CDT Plan of Treatment Health Maintenance Due Date Last Done Comments HEPATITIS B VACCINES (1 of 3 - 19+ 3-dose series) 10/2003 HPV/Cotest (21-29) 2006 HPV VACCINES (1 - 3-dose SCDM series) 2012 CERVICAL CANCER SCREENING 2015 HPV/Cotest (30-65) 2015 PAP SMEAR 2015 BREAST CANCER SCREENING 2025 INFLUENZA VACCINE (#1) 2025 07/29/2019 DTAP/TDAP/TD VACCINES (2 - Td or Tdap) 04/12/2027 Medical Devices Implanted Type Area [employer] Fabrication Supervisor Device Identifier Shelf Expiration Date Model / Serial / Lot Seamguard Endogia 60 [id number] - [id number] Implanted:Qty : 2 on 08/09/2021 by Foster Son MD at [facility] [employer] N/A: Stomach [employer] 05/17/2024 [id number] / / [id number] Seamguard Endogia 60 [id number] [id number] - [id number] Implanted:Qty : 2 on 08/09/2021 by Foster Son MD at [facility] [employer] N/A: Stomach [employer] 04/07/2024 [id number] / / [id number] Insurance RX [employer] RX Member Subscriber Plan / Payer (Ef fective 2021-Present) Name:Christine Lunsford Relation to Subscriber:Spouse Name:Christine Lunsford Subscriber ID:Not on file Payer ID:Not on file Group ID:[id number] Type:RX Commercial Address: [address] RX BURGER PLANS (INTERNAL) [facility] Internal Plans [facility] BLUE ACCESS CHOICE Advance Directives For more information, please contact: [phone] * Full Code (Latest Code Status on File) Date Activated Date Inactivated Comments 08/09/2021 7:56 AM 08/10/2021 4:33 PM * Full Code Date Activated Date Inactivated Comments 08/09/2021 6:35 AM 08/09/2021 7:56 AM * Full Code Date Activated Date Inactivated Comments 06/11/2021 8:06 AM 06/11/2021 11:52 AM Care Teams Carpenter Inspector Relationship Specialty Start Date End Date Melinda Odonnell FNP [address] [place] [phone] PCP - General Nurse Practitioner Family 06/01/21
--- OUTSIDE RECORDS SUMMARY | 2025-09-19 15:46 | XMS_ITS | Encounter Summary ---
Author Organization [facility] Address [address] [place] [address] Care Team Providers Care Belt Turner Name Role Phone Melinda Odonnell Primary Care Provider [phone] Encounter Details Date Type Department Care Team (Late st Contact Info) Description 07/01/2025 MyChart Message Enc [facility] Medical Group Family & Internal Medicine [id number] [place] [address] Melinda Odonnell FNP [facility] [place], [place] [phone] Medical clearance for surgery Social History Tobacco Use Types Packs/Day Years Used Date Smoking Tobacco: Never Passive Smoke Exposure: Past Smokeless Tobacco: Never Alcohol Use Standard Drinks/Week Comments Yes 3.3 (1 standard drink = 0.6 oz p ure alcohol) AUDIT-C Answer Date Recorded Frequency of Alcohol Consumption 2-4 times a mon10/07/2019 Average Number of Drinks 1 or 2 019 Frequency of Binge Drinking Never 06/2019 PHQ-2 Answer Date Recorded Patient Health Questionnaire-2 Score 4 04/04/2025 Comments No Sex and Gender Information Value Date Recorded Sex Assigned at Female 12/31/2024 2:46 PM FLOORHAND Legal Sex Female 9:37 AM CDT Gender Identity Not on file Sexual Orientation Not on file documented as of this encounter Plan of Treatment Upcoming Encounters Date Type Department Care Team (Late st Contact Info) Description 10/27/2025 1:[address] [facility] [place] [address] Marija Escobar, SEMICONDUCTOR ENGINEER [address] [place] [address] 02/23/2026 9:00 AM CDT Office Visit [facility] [address] [place] [address] Behzad Cuellar MD [facility] [address] [place] [address] documented as of this encounter Visit Diagnoses Not on filedocumented in this encounter Additional Health Concerns Assessment Noted Time PHQ-9 Depression Total Score: 11 025 8:14 AM CDT documented as of this encounter Care Teams Belt Turner Relationship Specialty Start Date End Date Melinda Odonnell FNP [address] [place] [address] PCP - General Nurse Practitioner Family 04/25/19 documented as of this encounter
--- OUTSIDE RECORDS SUMMARY | 2025-09-19 15:46 | XMS_ITS | Encounter Summary ---
Author Organization [facility] Address [address] [place] [address] Care Team Providers Care Actor Understudy Name Role Phone Melinda Odonnell Primary Care Provider [phone] Encounter Details Date Type Department Care Team (Late st Contact Info) Description 08/11/2021 Switchable Solutionst Message Enc [facility] Medical Group Family & Internal Medicine [address] [address] Melinda Odonnell FNP [address] [place] [address] [phone] RE: FW: FW: Follow Up/Update Social History Tobacco Use Types [...] Sex Assigned at Female 12/31/2024 2:46 PM COMMANDING OFFICER GARAGE Legal Sex Female 9:37 AM CDT Gender Identity Not on file Sexual Orientation Not on file COVID-19 Exposure Response Date Recorded In the last month, have you been in contact with someone who was confirmed or suspected to have Coronavirus / COVID-19? No / Unsure 07/26/2021 3:20 PM CDT documented as of this encounter Plan of Treatment Upcoming Encounters Date Type Department Care Team (Late st Contact Info) Description 10/27/2025 1:30 PM COMMANDING OFFICER GARAGE Appointment [place] [address] Marija Escobar, MASTER POLICE DETECTIVE [address] [place], [place] [phone] 02/23/2026 9:00 AM CDT Office Visit [facility] [address] [place] [address] Behzad Cuellar MD [address] [place] [address] documented as of this encounter Visit Diagnoses Not on filedocumented in this encounter Additional Health Concerns Infection Onset Date Last Indicated Resolved Time COVID-19 Rule Out 06/18/2024 06/18/2024 06/18/2024 11:47 AM CDT COVID-19 Confirmed 06/18/2024 06/18/2024 12:32 AM CDT Assessment Noted Time PHQ-9 Depression Total Score: 12 04/12/ 021 12:04 PM CDT documented as of this encounter Care Teams Actor Understudy Relationship Specialty Start Date End Date Melinda Odonnell FNP [address] [place] [address] PCP - General Nurse Practitioner Family 04/25/19 documented as of this encounter
--- OUTSIDE RECORDS SUMMARY | 2025-09-19 15:46 | XMS_ITS | Encounter Summary ---
Author Organization [facility] Address [address] [place] [address] Care Team Providers Care Soda Drier Feeder Name Role Phone Melinda Odonnell Primary Care Provider [phone] Encounter Details Date Type Department Care Team (Late st Contact Info) Description 09/15/2022 Intention Technologyhart Message Enc [facility] Medical Group Family & Internal Medicine [address] [address] Melinda Odonenll FNP [facility] [place], [place] [id number] Basal cell carcinoma Social History Tobacco Use Types Packs/Day Years [...] please move on to questions 3-9 0 06/28/2022 Comments No Sex and Gender Information Value Date Recorded Sex Assigned at Female 12/31/2024 2:46 PM GLASS TECHNICIAN/INSTALLER Legal Sex Female 9:37 AM CDT Gender Identity Not on file Sexual Orientation Not on file documented as of this encounter Plan of Treatment Upcoming Encounters Date Type Department Care Team (Late st Contact Info) Description 10/27/2025 1:30 PM GLASS TECHNICIAN/INSTALLER Appointment [place] [address] Marija Escobar, FLAME CUTTER [address] [place] [address] 02/23/2026 9:00 AM CDT Office Visit [place] [facility] [address] [place], [place] [id number] Behzad Cuellar MD [facility], [address] [place] [address] documented as of this encounter Visit Diagnoses Not on filedocumented in this encounter Additional Health Concerns Infection Onset Date Last Indicated Resolved Time COVID-19 Rule Out 06/18/2024 06/18/2024 06/18/2024 11:47 AM CDT COVID-19 Confirmed 06/18/2024 06/18/2024 12:32 AM CDT Assessment Noted Time PHQ-9 Depression Total Score: 7 06/28/20 22 2:04 PM CDT documented as of this encounter Care Teams Soda Drier Feeder Relationship Specialty Start Date End Date Melinda Odonnell FNP [address] [place] [address] PCP - General Nurse Practitioner Family 04/25/19 documented as of this encounter
--- OUTSIDE RECORDS SUMMARY | 2025-09-19 15:46 | XMS_ITS | Encounter Summary ---
Author Organization [facility] Address [address] [place] [address] Care Team Providers Care Electron Beam Welding Machine Operator Name Role Phone Melinda Odonnell REE Primary Care Provider [phone] Reason for Visit * Auth/Cert (Routine) Specialty Diagnoses / Procedures Referred By Rj t Referred To Contact Diagnoses Cervical radiculopathy cervical radiculopathy Procedures NJX INTERLAMINAR CRV/THRC INJECTION EPIDURAL STEROID [id number] Krystal Muir MD Three [facility] [address] [place] [address] Phone: tel: fax: Referral ID Status Reason Start Date Expiration Date Visits Re quested Visits Authorized [id number] 1 1 Encounter Details Date Type Department Care Team (Late st Contact Info) Description 04/28/2025 Hospital Encounter [facility] [place], [place] [id number] Krystal Muir MD Three [facility] [address] [place] [address] [phone] Social History Tobacco Use Types Packs/Day Years [...] Sex Assigned at Female 12/31/2024 2:46 PM OCCUPATIONAL MEDICINE PHYSICIAN Legal Sex Female 9:37 AM CDT Gender Identity Not on file Sexual Orientation Not on file documented as of this encounter Functional Status * Over the past 2 weeks, how often have you been bothered by any of the following problems? Question Answer Date of Assessment Author Status Little interest or pleasure in doing things More than half the days 04/04/2025 8:14 AM CDT Melinda Odonnell, BOARD RUNNER Active Feeling down, depressed, or hopeless More than half the days 04/04/2025 8:14 AM CDT Melinda Odonnell BOARD RUNNER Active Patient Health Questionnaire-2 Score 4 04/04/2025 8:14 AM CDT Melinda Odonnell BOARD RUNNER Active * Question Answer Date of Assessment Author Status Trouble falling or staying asleep, or sleeping too much Nearly every day 04/04/2025 8:14 AM CDT Melinda Odonnell, BOARD RUNNER Active Feeling tired or having little energy More than half the days 04/04/2025 8:14 AM CDT Melinda Odonnell, BOARD RUNNER Active Poor appetite or overeating Not at all 04/04/2025 8:14 AM CDT Melinda Odonnell, BOARD RUNNER Active Feeling bad about yourself - or that you are a failure or have let yourself or your family down Several days 04/04/2025 8:14 AM CDT Melinda Odonnell, BOARD RUNNER Active Trouble concentrating on things, such as reading the newspaper or watching television Several days 04/04/2025 8:14 AM CDT Robert Odonnellanda, BOARD RUNNER Active Moving or speaking so slowly that other people could have noticed? Or the opposite - being so fidgety or restless that you have been moving around a lot more than usual. Not at all 04/04/2025 8:14 AM CDT Melinda Odonnell, BOARD RUNNER Active Thoughts that you would be better off or hurting yourself in some way Not at all 04/04/2025 8:14 AM CDT Kilzer, Melinda, BOARD RUNNER Active Patient Health Questionnaire-9 Score 11 04/04/2025 8:14 AM CDT Kilzer, Melinda, BOARD RUNNER Active * If you checked off any problems on this questionnaire so far, Question Answer Date of Assessment Author Status How difficult have these problems made it for you to do your work, take care of things at home, or get along with other people? Very difficult 04/04/2025 8:14 AM CDT Kilzer, Melinda, BOARD RUNNER Active * Over the last 2 weeks, how often have you been bothered by any of the following problems? Question Answer Date of Assessment Author Status Feeling nervous, anxious, or on edge 2 04/04/2025 8:15 AM CDT Kilzer, Melinda, BOARD RUNNER Activ e Not being able to stop or control worrying 0 04/04/2025 8:15 AM CDT Kilzer, Melinda, BOARD RUNNER Acti ve Worrying too much about different things 0 04/04/2025 8:15 AM CDT Kilzer, Melinda, BOARD RUNNER Acti ve Trouble relaxing 1 04/04/2025 8:15 AM CDT Kilzer, Melinda, BOARD RUNNER Active Being so restless that it is hard to sit still 1 04/04/2025 8:15 AM CDT Kilzer, Melinda, BOARD RUNNER Act darek Becoming easily annoyed or irritable 3 04/04/2025 8:15 AM CDT Kilzer, Melinda, BOARD RUNNER Activ e Feeling afraid as if something awful might happen 0 04/04/2025 8:15 AM CDT Kilzer, Dov da, BOARD RUNNER Active PRASHANT-7 Total Score 7 04/04/2025 8:15 AM CDT Kilzer , Melinda, BOARD RUNNER Active documented as of this encounter Plan of Treatment Upcoming Encounters Date Type Department Care Team (Late st Contact Info) Description 10/27/2025 1:30 PM OCCUPATIONAL MEDICINE PHYSICIAN Appointment [facility] [place] [address] Marija Escobar NP [address] [place], [place] [id number] 02/23/2026 9:00 AM CDT Office Visit [facility] [address] [place] [address] Behzad Cuellar MD [facility], [address] [place] [address] documented as of this encounter Visit Diagnoses Diagnosis Cervical radiculopathy- Primary Brachial neuritis or radiculitis nos documented in this encounter Admitting Diagnoses Diagnosis Cervical radiculopathy Brachial neuritis or radiculitis nos documented in this encounter Additional Health Concerns Assessment Noted Time PHQ-9 Depression Total Score: 11 025 8:14 AM CDT documented as of this encounter Care Teams Electron Beam Welding Machine Operator Relationship Specialty Start Date End Date Melinda Odonnell FNP [facility] [place] [address] PCP - General Nurse Practitioner Family 04/25/19 documented as of this encounter
--- OUTSIDE RECORDS SUMMARY | 2025-09-19 15:46 | XMS_ITS | Encounter Summary ---
Author Organization [facility] Address [address] [place] [address] Care Team Providers Care Systems Security Consultant Name Role Phone Melinda Odonnell REE Primary Care Provider [phone] Encounter Details Date Type Department Care Team (Late st Contact Info) Description 07/19/2021 StockRadart Message Enc [facility] Medical Group Family & Internal Medicine [facility] [address] [place] [address] Montez Miranda DO [address] [place] [address] RE: Follow Up/Update Social History Tobacco Use [...] Sex Assigned at Female 12/31/2024 2:46 PM BILLBOARD POSTER Legal Sex Female 9:37 AM CDT Gender Identity Not on file Sexual Orientation Not on file COVID-19 Exposure Response Date Recorded In the last month, have you been in contact with someone who was confirmed or suspected to have Coronavirus / COVID-19? Unable to assess 07/16/2021 6:43 AM CDT documented as of this encounter Progress Notes * Montez Miranda DO - 07/19/2021 3:52 PM CDT Per Maritza, we faxed this today in the morning. Maybe we can re-fax this? documented in this encounter Plan of Treatment Upcoming Encounters Date Type Department Care Team (Late st Contact Info) Description 10/27/2025 1:30 PM BILLBOARD POSTER Appointment [facility] [address] [place] [address] Marija Escobar, VICTORINA [address] [place] [address] 02/23/2026 9:00 AM CDT Office Visit [place] [facility] [address] [place] [address] Behzad Cuellar MD [address] [facility] [address] [place] [address] documented as of this encounter Visit Diagnoses Not on filedocumented in this encounter Additional Health Concerns Infection Onset Date Last Indicated Resolved Time COVID-19 Rule Out 06/18/2024 06/18/2024 06/18/2024 11:47 AM CDT COVID-19 Confirmed 06/18/2024 06/18/2024 12:32 AM CDT Assessment Noted Time PHQ-9 Depression Total Score: 12 04/12/ 021 12:04 PM CDT documented as of this encounter Care Teams Systems Security Consultant Relationship Specialty Start Date End Date Melinda Odonnell FNP [address] [place] [address] PCP - General Nurse Practitioner Family 04/25/19 documented as of this encounter
--- OUTSIDE RECORDS SUMMARY | 2025-09-19 15:46 | XMS_ITS | Encounter Summary ---
Author Organization [facility] Address [address] [place] [address] Care Team Providers Care Environmental Programs Specialist Name Role Phone Melinda Odonnell Primary Care Provider [phone] Encounter Details Date Type Department Care Team (Late st Contact Info) Description 08/05/2021 WiWidet Message Enc [facility] Medical Group Family & Internal Medicine [address] [address] Melinda Odonnell FNP [address] [place] [phone] RE: Follow Up/Update Social History Tobacco Use [...] Sex Assigned at Female 12/31/2024 2:46 PM PRE OWNED SALES CONSULTANT Legal Sex Female 9:37 AM CDT Gender [...] st Contact Info) Description 10/27/2025 1:30 PM PRE OWNED SALES CONSULTANT Appointment [facility] [address] [facility] [address] [place] [address] Marija Escobar NP [address] [place] [address] 02/23/2026 9:00 AM CDT Office Visit [facility] [address] [place] [address] Behzad Cuellar MD [address] [place] [address] documented as of this encounter Visit Diagnoses Not on filedocumented in this encounter Additional Health Concerns Infection Onset Date Last Indicated Resolved Time COVID-19 Rule Out 06/18/2024 06/18/2024 06/18/2024 11:47 AM CDT COVID-19 Confirmed 06/18/2024 06/18/2024 12:32 AM CDT Assessment Noted Time PHQ-9 Depression Total Score: 12 04/12/2 021 12:04 PM CDT documented as of this encounter Care Teams Environmental Programs Specialist Relationship Specialty Start Date End Date Melinda Odonnell FNP [address] [place] [address] PCP - General Nurse Practitioner Family 04/25/19 documented as of this encounter
--- OUTSIDE RECORDS SUMMARY | 2025-09-19 15:46 | XMS_ITS | Encounter Summary ---
Author Organization [facility] Address [address] [place] [address] Care Team Providers Care Resident Program Specialist Name Role Phone Melinda Odonnell REE Primary Care Provider [phone] Encounter Details Date Type Department Care Team (Late Contact Info) Description 07/23/2021 [employer]CAM [employer]rapeutics Message Enc [facility] THREE [facility], [address] [address] [place], [facility] Provider Results Social History Tobacco Use Types Packs/Day Years [...] Sex Assigned at Female 12/31/2024 2:46 PM SOIL FIELD TECHNICIAN Legal Sex Female 9:37 AM CDT Gender [...] Encounters Date Type Department Care Team (Late Contact Info) Description 10/27/2025 1:30 PM SOIL FIELD TECHNICIAN Appointment [facility] [address] [place] [address] Marija Escobar NP [address] [place], [place] [address] 02/23/2026 9:00 AM CDT Office Visit [facility] [address] [place], [place] [phone] Behzad Cuellar MD [address] [facility] [address] [place] [address] documented as of this encounter Visit Diagnoses Not on filedocumented in this encounter Additional Health Concerns Infection Onset Date Last Indicated Resolved Time COVID-19 Rule Out 06/18/2024 06/18/2024 06/18/2024 11:47 AM CDT COVID-19 Confirmed 06/18/2024 06/18/2024 12:32 AM CDT Assessment Noted Time PHQ-9 Depression Total Score: 12 021 12:04 PM CDT documented as of this encounter Care Teams Resident Program Specialist Relationship Specialty Start Date End Date Melinda Odonnell FNP [address] [place] [address] PCP - General Nurse Practitioner Family 04/25/19 documented as of this encounter
--- OUTSIDE RECORDS SUMMARY | 2025-09-19 15:46 | XMS_ITS | Encounter Summary ---
Author Organization [facility] Address [address] [place] [address] Care Team Providers Care Commodities Manager Name Role Phone Melinda Odonnell REE Primary Care Provider [phone] Encounter Details Date Type Department Care Team (Late st Contact Info) Description 04/26/2023 MyChart Message Enc [facility] Medical Group - [facility] [address] [place] [address] [place], [facility] Provider Air Quality Message Social History Tobacco Use Types Packs/Day Years [...] Answer Date Recorded Patient Health Questionnaire-2 Score 0 01/06/2023 Comments No Sex and Gender Information Value Date Recorded Sex Assigned at Female 12/31/2024 2:46 PM DENTAL PRACTITIONER Legal Sex Female 9:37 AM CDT Gender Identity Not on file Sexual Orientation Not on file documented as of this encounter Plan of Treatment Upcoming Encounters Date Type Department Care Team (Late st Contact Info) Description 10/27/2025 1:30 PM DENTAL PRACTITIONER Appointment [place] [address] Marija Escobar, BUSINESS TAXES SPECIALIST [address] [place] [address] 02/23/2026 9:00 AM CDT Office Visit [place] [facility] [address] [place] [address] Behzad Cuellar MD [facility], [address] [place] [address] documented as of this encounter Visit Diagnoses Not on filedocumented in this encounter Additional Health Concerns Infection Onset Date Last Indicated Resolved Time COVID-19 Rule Out 06/18/2024 06/18/2024 06/18/2024 11:47 AM CDT COVID-19 Confirmed 06/18/2024 06/18/2024 12:32 AM CDT Assessment Noted Time PHQ-9 Depression Total Score: 4 01/07/20 23 10:08 AM DENTAL PRACTITIONER documented as of this encounter Care Teams Commodities Manager Relationship Specialty Start Date End Date Melinda Odonnell FNP [facility] [place] [address] PCP - General Nurse Practitioner Family 04/25/19 documented as of this encounter
--- OUTSIDE RECORDS SUMMARY | 2025-09-19 15:46 | XMS_ITS ---
Author Organization [facility] Address [address] [place] [address] Care Team Providers Care News Anchor Name Role Phone Melinda Odonnell REE Primary Care Provider [phone] Active Problems Problem Noted Date Diagnosed Date Benign paroxysmal positional vertigo due to bilateral vestibular disorder 04/04/2025 Diverticulitis 06/18/2024 Elevated liver enzymes 06/18/2024 B12 deficiency 06/18/2024 PCOS (polycystic ovarian syndrome) 06/02/2024 Overview (06/18/2024): Last Assessment & Plan: Prescribed spironolactone and metformin. Has not taken for 1 month as was on vacation. Resume outpatient Colitis 06/02/2024 Overview (06/18/2024): Last Assessment & Plan: Admitted with 3d hx of abdominal pain [...] to discharge - prn antiemetics and analgesics Muscle spasms of neck 11/27/2023 Cervical radiculopathy 11/27/2023 Cervical spine pain 11/27/2023 Numbness and tingling of right arm 11/27/2023 Chronic migraine without aur a without status migrainosus, not intractable 11/27/2023 Lordosis of cervicothoracic region 11/27/2023 Basal cell carcinoma (BCC) 11/03/2023 Family history of renal cancer 11/03/2023 Family history of thyroid cancer 11/03/2023 S/P bariatric surgery 06/28/2022 Pulmonary nodule less than 6 cm determined by computed tomography of lung 08/25/2021 Lymphadenopathy 08/25/2021 Multiple thyroid nodules 08/25/2021 Gallstones 08/25/2021 H/O seasonal allergies 08/09/2021 Hypertension 08/09/2021 Mild intermittent asthma without complication Anxiety and depression 08/09/2021 Blood glucose elevated 04/12/2021 Allergic rhinitis due to oth er allergic trigger, unspecified seasonality 04/12/2021 Moderate asthma without comp lication, unspecified whether persistent 04/12/2021 Gastroesophageal reflux disease without esophagi tis 04/12/2021 Generalized anxiety disorder 04/12/2021 Elevated blood pressure read ing in office without diagnosis of hypertension 04/12/2021 Primary insomnia 12/04/2019 Vitamin D deficiency 07/02/2019 Panic attacks 05/29/2019 Drug-induced constipation 05/29/2019 Hemorrhoids, unspecified hemorrhoid type 019 Class 2 severe obesity due t o excess calories with serious comorbidity and body mass index (BMI) of 38.0 to 38.9 in adult 05/29/2019 Lymphoma 05/27/2019 Cancer Staging:Clinical: 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 Past Treatment and Therapy Plans Resolved Problems Problem Noted Date Diagnosed Date Resolved Date COVID-19 06/18/2024 02/17/2025 Need for COVID-19 vaccine 08/25/2021 COVID 07/27/2021 02/17/2025 BMI 45.0-49.9, adult 04/12/2021 022 Fever, unspecified fever cause 12/04/2019 04/12/2021 Lack of energy 12/04/2019 04/04/2025 Need for prophylactic vaccin ation against Streptococcus pneumoniae (pneumococcus) 10/09/2019 07/10/2020 Acute non-recurrent frontal sinusitis 07/02/2019 04/12/2021 SOB (shortness of breath) 07/02/2019 Urinary frequency 05/29/2019 04/04/2025
--- OUTSIDE RECORDS SUMMARY | 2025-09-19 15:46 | XMS_ITS | Encounter Summary ---
Author Organization [facility] Address [address] [place] [address] Care Team Providers Care Warehouse Consultant Name Role Phone Melinda Odonnell Primary Care Provider [phone] Encounter Details Date Type Department Care Team (Late st Contact Info) Description 05/19/2021 HelioVoltt Message Enc [facility] Medical Group Family & Internal Medicine [address] [address] Melinda Odonnell FNP [address] [place] [address] [phone] RE: Question Social History Tobacco Use Types Packs/Day [...] Sex Assigned at Female 12/31/2024 2:46 PM HEARING IMPAIRED TEACHER Legal Sex Female 9:37 AM CDT Gender Identity Not on file Sexual Orientation Not on file COVID-19 Exposure Response Date Recorded In the last month, have you been in contact with someone who was confirmed or suspected to have Coronavirus / COVID-19? Unable to assess 05/21/2021 10:53 AM CDT documented as of this encounter Progress Notes * REE Devi - 05/20/2021 12:45 PM CDT She needs a covid test please. Formed fill out documented in this encounter Plan of Treatment Upcoming Encounters Date Type Department Care Team (Late st Contact Info) Description 10/27/2025 1:30 PM HEARING IMPAIRED TEACHER [facility]ment [facility] [address] [facility] [address] [place] [address] Marija Escobar, BRICK TOSSER [address] [place], [place] [address] 02/23/2026 9:00 AM CDT Office Visit [place] [facility] [address] [place], [place] [address] Behzad Cuellar MD [address] [facility] [address] [place] [address] documented as of this encounter Visit Diagnoses Not on filedocumented in this encounter Additional Health Concerns Infection Onset Date Last Indicated Resolved Time COVID-19 Rule Out 05/21/2021 05/21/2021 05/23/2021 12:58 PM CDT COVID-19 Confirmed 05/21/2021 05/21/2021 12:35 AM CDT COVID-19 Rule Out 06/18/2024 06/18/2024 06/18/2024 11:47 AM CDT COVID-19 Confirmed 06/18/2024 06/18/2024 12:32 AM CDT Assessment Noted Time PHQ-9 Depression Total Score: 12 04/12/2 021 12:04 PM CDT documented as of this encounter Care Teams Warehouse Consultant Relationship Specialty Start Date End Date Melinda Odonnell FNP [address] [place] [address] PCP - General Nurse Practitioner Family 04/25/19 documented as of this encounter
--- OUTSIDE RECORDS SUMMARY | 2025-09-19 15:46 | XMS_ITS | Encounter Summary ---
Author Organization [facility] Address [facility] [place] [address] Care Team Providers Care Freight Router Name Role Phone Kikateressa Melinda KEENAN Primary Care Provider [phone] Encounter Details Date Type Department Care Team (Late st Contact Info) Description 07/25/2019 Laricina Energ[employer] Message Enc [facility] Medical Group Family & Internal Medicine [address] [address] Melinda Odonnell FNP [facility] [place], [place] [phone] RE: FW: Question Social History Tobacco Use Types Packs/Day Years Used Date Smoking Tobacco: Never Smokeless Tobacco: Never Alcohol Use Standard Drinks/Week Comments No 0 (1 standard drink = 0.6 oz pur e alcohol) AUDIT-C Answer Date Recorded Frequency of Alcohol Consumption Never 05/27/2019 Average Number of Drinks Not on file 019 Frequency of Binge Drinking Not on file 04/30 Comments No Sex and Gender Information Value Date Recorded Sex Assigned at Female 12/31/2024 2:46 PM SOIL ENGINEER Legal Sex Female 9:37 AM CDT Gender Identity Not on file Sexual Orientation Not on file documented as of this encounter Plan of Treatment Upcoming Encounters Date Type Department Care Team (Late st Contact Info) Description 10/27/2025 1:30 PM SOIL ENGINEER Appointment [facility] [place] [address] Marija Escobar, CLAIM CLINICIAN [address] [facility] [address] [place] [address] 02/23/2026 9:00 AM CDT Office Visit [place] [facility] [address] [place] [address] Behzad Cuellar MD Three [facility] [address] [place] [address] documented as of this encounter Visit Diagnoses Not on filedocumented in this encounter Additional Health Concerns Infection Onset Date Last Indicated Resolved Time COVID-19 Rule Out 09/23/2020 09/25/2020 10/06/2020 12:44 PM SOIL ENGINEER COVID-19 Rule Out 05/21/2021 05/21/2021 05/23/2021 12:58 PM CDT COVID-19 Confirmed 05/21/2021 05/21/2021 12:35 AM CDT COVID-19 Rule Out 06/18/2024 06/18/2024 06/18/2024 11:47 AM CDT COVID-19 Confirmed 06/18/2024 06/18/2024 12:32 AM CDT documented as of this encounter Care Teams Freight Router Relationship Specialty Start Date End Date Melinda Odonnell FNP [address] [place] [address] PCP - General Nurse Practitioner Family 04/25/19 documented as of this encounter
--- OUTSIDE RECORDS SUMMARY | 2025-09-19 15:46 | XMS_ITS | Encounter Summary ---
Author Organization [facility] Address [address] [place] [address] Care Team Providers Care Irrigation Equipment Mechanic Name Role Phone Melinda Odonnell Primary Care Provider [phone] Encounter Details Date Type Department Care Team (Late st Contact Info) Description 05/13/2021 deskwolft Message Enc [facility] Medical Group Family & Internal Medicine [address] [address] Melinda Odonnell FNP [address] [place] [address] [phone] Referral Request Social History Tobacco Use Types Packs/Day Years [...] Sex Assigned at Female 12/31/2024 2:46 PM SHOT POLISHER Legal Sex Female 9:37 AM CDT Gender Identity Not on file Sexual Orientation Not on file documented as of this encounter Progress Notes * REE Devi - 05/19/2021 1:02 PM CDT Can we print this attachment and place in on my desk please? documented in this encounter Plan of Treatment Upcoming Encounters Date Type Department Care Team (Late st Contact Info) Description 10/27/2025 1:30 PM SHOT POLISHER Appointment [facility] [address] [place] [address] Marija Escobar, INDUSTRIAL MAINTENANCE ELECTRICIAN [address] [place], [place] [id number] 02/23/2026 9:00 AM CDT Office Visit [facility] [address] [place], [place] [phone] Behzad Cuellar MD [address] [place] [address] documented as of this encounter Visit Diagnoses [...] documented as of this encounter Care Teams Irrigation Equipment Mechanic Relationship Specialty Start Date End Date Melinda Odonnell FNP [address] [place] [address] PCP - General Nurse Practitioner Family 04/25/19 documented as of this encounter
--- OUTSIDE RECORDS SUMMARY | 2025-09-19 15:46 | XMS_ITS | Encounter Summary ---
Author Organization [facility] Address [address] [place] [address] Care Team Providers Care Interior Decorator Name Role Phone Melinda Odonnell Primary Care Provider [phone] Encounter Details Date Type Department Care Team (Late st Contact Info) Description 07/01/2021 Softgate Systemst Message Enc [facility] Medical Group Family & Internal Medicine [address] [address] Melinda Odonnell FNP [address] [place] [address] [phone] RE: Follow Up/Update Social History Tobacco Use [...] Sex Assigned at Female 12/31/2024 2:46 PM PLUMBING INSPECTOR Legal Sex Female 9:37 AM CDT Gender Identity Not on file Sexual Orientation Not on file COVID-19 Exposure Response Date Recorded In the last month, have you been in contact with someone who was confirmed or suspected to have Coronavirus / COVID-19? No / Unsure 06/23/2021 11:09 AM CDT documented as of this encounter Plan of Treatment Upcoming Encounters Date Type Department Care Team (Late st Contact Info) Description 10/27/2025 1:30 PM PLUMBING INSPECTOR Appointment [facility] [address] [address] Marija Escobar NP [address] [place] [address] 02/23/2026 9:00 AM CDT Office Visit [facility] [address] [place] [address] Behzad Cuellar MD [address] [place] [address] documented as of this encounter Visit Diagnoses Not on filedocumented in this encounter Additional Health Concerns Infection Onset Date Last Indicated Resolved Time COVID-19 Rule Out 06/18/2024 06/18/2024 06/18/2024 11:47 AM CDT COVID-19 Confirmed 06/18/2024 06/18/2024 12:32 AM CDT Assessment Noted Time PHQ-9 Depression Total Score: 12 04/12/2 021 12:04 PM CDT documented as of this encounter Care Teams Interior Decorator Relationship Specialty Start Date End Date Melinda Odonnell FNP [address] [place] [address] PCP - General Nurse Practitioner Family 04/25/19 documented as of this encounter
--- OUTSIDE RECORDS SUMMARY | 2025-09-19 15:47 | XMS_ITS | Patient Health Record ---
Author Organization [facility] [employer] [facility] Address [address] [place] [address] Support Name Relationship Address Phone GILLIS, VISHAL Emergency Contact Unknown Unavail able ESTELITA GILLIS Guarantor Unknown Reason For Referral No Information Medications Medication SIG (Take, Route, Frequency, Duration) Notes Start Date End Date Status Fluticasone Propionate Diskus 50 MCG/ACT Aerosol Powder Breath Activated Inhalation *Reorder from [employer] for eRx and Interaction Alerts* 12/05/2022 Active ProAir HFA 108 (90 Base) MCG/ACT Aerosol Solution Inhalation 12/05/2022 Active Spiriva Respimat 2.5 MCG/ACT Aerosol Solution Inhalation 12/05/2022 Active LORazepam 0.5 MG Tablet Oral 12/05/2022 Active Escitalopram Oxalate 10 MG Tablet Oral 12/05/2022 Active Spironolactone 100 MG Tablet Oral 12/05/2022 Active lamoTRIgine 25 MG Tablet Oral 12/05/2022 Active Omeprazole 20 MG Capsule Delayed Release Oral 12/05/2022 Active Social History Social History Additional Details Category Social Info Options Details Migrated Social History Migrated Social History Alcohol Intake: Occasional 12/05/2022,Tobacco Years: Never smoker 12/05/2022 Plan Of Treatment No Information Insurance Providers Payer Name Payer Address Payer Phone Subscriber Number Group Number Insured Name Patient Relationship to Insured Coverage Start Date Coverage End Date [facility] [address] [place] [address] [id number] ESTELITA GILLIS Self - patient is the insured Medical (General) History Surgical History Surgery Date(Month/Year) Tonsilectomy/adenoids 10/20/1991
--- OUTSIDE RECORDS SUMMARY | 2025-09-19 15:47 | XMS_ITS | Encounter Summary ---
Author Organization [facility] Address [address] [place] [address] Care Team Providers Care Mat Machine Tender Name Role Phone Melinda Odonnell Primary Care Provider [phone] Encounter Details Date Type Department Care Team (Late Contact Info) Description 06/05/2024 Adomoshart Message Enc [facility] Medical Group Family & Internal Medicine [address] [address] Melinda Odonnell FNP [facility] [place], [place] [phone] Gi specialist Social History Tobacco Use Types Packs/Day Years [...] Date Recorded Patient Health Questionnaire-2 Score 0 04/11/2024 Comments No Sex and Gender Information Value Date Recorded Sex Assigned at Female 12/31/2024 2:46 PM TECHNICAL TRAINING MANAGER Legal Sex Female 9:37 AM CDT Gender Identity Not on file Sexual Orientation Not on file documented as of this encounter Plan of Treatment Upcoming Encounters Date Type Department Care Team (Late Contact Info) Description 10/27/2025 1:30 PM TECHNICAL TRAINING MANAGER Appointment [place] [address] Marija Escobar, EXTERIOR DOOR INSTALLER [address] [place] [address] 02/23/2026 9:00 AM CDT Office Visit [facility] [address] [place] [address] Behzad Cuellar MD Three [facility], [address] [place] [address] documented as of this encounter Visit Diagnoses Not on filedocumented in this encounter Additional Health Concerns Infection Onset Date Last Indicated Resolved Time COVID-19 Rule Out 06/18/2024 06/18/2024 06/18/2024 11:47 AM CDT COVID-19 Confirmed 06/18/2024 06/18/2024 12:32 AM CDT Assessment Noted Time PHQ-9 Depression Total Score: 3 04/11/20 24 9:25 AM CDT documented as of this encounter Care Teams Mat Machine Tender Relationship Specialty Start Date End Date Melinda Odonnell FNP [address] [place] [address] PCP - General Nurse Practitioner Family 04/25/19 documented as of this encounter
--- OUTSIDE RECORDS SUMMARY | 2025-09-19 15:47 | XMS_ITS | Clinical Summary ---
Author Organization [facility] Address [address] [facility] [place] [address] Care Team Providers Care Senior Account Executive Name Role Phone Rich Limon MD Primary Care Provider [phone] Source Comments [facility],non-owned Affiliates and Associated Physician Practices is amultiple site organization consisting of ambulatory clinics and hospital sitesin [place], [place], [place] and [place]. This disclosure is being madepursuant to the Care Everywhere program and may not contain all information available regarding this patient. Last updated 18.[facility] [employer] Social History Tobacco Use Types Packs/Day Years Used Date Smoking Tobacco: Never Assessed Comments Unknown Sex and Gender Information Value Date Recorded Sex Assigned at Not on file Legal Sex Female 11:52 AM CDT Gender Identity Not on file Sexual Orientation Not on file Plan of Treatment Health Maintenance Due Date Last Done Comments LIPID TESTING 1985 MAMMOGRAM 1985 HIV SCREENING 2000 HEPATITIS C SCREENING 03/26/2003 DTAP/TDAP/TD VACCINES (1 - Tdap) 2004 HEPATITIS B VACCINE (1 of 3 - 19+ 3-dose series) 2004 Cervical Cancer Screening 2006 PAP SMEAR 2006 HPV VACCINE (1 - 3-dose SCDM series) 2012 PAP with HPV 2015 DEPRESSION SCREENING 10/30/2024 COVID-19 VACCINE (1 - 2024-2 6 season) 2025 INFLUENZA VACCINE (#1) 2025 , 07/29/2019 ZOSTER VACCINE (1 of 2) 2035 HIB VACCINE Aged Out No longer eligi ble based on patient's age to complete this topic MENINGOCOCCAL (Group B) VACCINE SHARED DECISION-MAKING Aged Out No longer eligible based on patient's age to complete this topic MENINGOCOCCAL GROUPS A/C/Y/W VACCINE Aged Out No longer eligible b ased on patient's age to complete this topic PNEUMOCOCCAL VACCINE Aged Out No long er eligible based on patient's age to complete this topic Insurance ANTHEM Care Teams Senior Account Executive Relationship Specialty Start Date End Date Rich Limon MD [address] [place], [place] [id number] PCP - General 04/29/19
--- OUTSIDE RECORDS SUMMARY | 2025-09-19 15:47 | XMS_ITS | Encounter Summary ---
Author Organization [facility] Address [address] [place] [address] Care Team Providers Care Parlor Maid Name Role Phone Rich Limon MD Primary Care Provider [phone] Encounter Details Date Type Department Care Team (Late st Contact Info) Description 04/29/2019 Lab Requisition [facility] Care Pathology Lab [address] [place] [address] Gray Garrison MD [address] [address] Social History Tobacco Use Types Packs/Day Years Used Date Smoking Tobacco: Never Assessed Comments Unknown Sex and Gender Information Value Date Recorded Sex Assigned at Not on file Legal Sex Female 11:52 AM CDT Gender Identity Not on file Sexual Orientation Not on file documented as of this encounter Plan of Treatment Not on file documented as of this encounter Procedures Procedure Name Priority Date/Time Associated Diagnosis Comments PATHOLOGY TISSUE Routine 04/26/2019 8:00 AM CDT documented in this encounter Results * PATHOLOGY TISSUE (04/26/2019 8:00 AM CDT) Case Report Surgical Pathology Report Case: [id number] Authorizing Provider: Gray Garrison MD Collected: 04/26/2019 08:00 AM Pathologist: Ashley Lala MD Received: 04/29/2019 03:44 PM Specimen: Mediastinum Mass, [id number] 04/30/2019 10:56 AM CDT [facility] Final Diagnosis Mediastinal mass, needle core biopsy (OSC [id number], 04/26/19): - Classic Hodgkin lymphoma. - See description. 04/30/2019 10:56 AM CDT [facility] at 1056 CDT Microscopic Description and Comment Review of the mediastinal mass specimen shows multiple thin needle core fragments of loose fibrovascular tissue. There is an infiltrate of small mature lymphocytes with occasional eosinophils and neutrophils present. There are variable numbers of Hodgkin and rare Marcus-José Miguel cells noted in the tissue. To further evaluate the large cell population, immunohistochemistry is performed in the [facility] Department of Pathology on the specimen. All controls are appropriately reactive. The tumor cells express CD30, CD15, MUM-1, and PAX-5 (weak). They are negative for CD20 and CD3, which highlight numerous background B-cells and T-cells, respectively. In summary, the mediastinal mass specimen shows involvement by classic Hodgkin lymphoma. Further subtype classification cannot be performed due to the scant nature of the specimen. Clinical correlation is advised. KR 04/30/2019 10:56 AM [facility] Clinical History 34 year old woman with a mediastinal mass. 04/30/2019 10:56 AM [facility] Materials Received Received are 2 slides and 1 block labeled as [id number] along with the outside pathology report. [place] [address]. All materials are returned to the referring institution, along with a copy of our final report. 04/30/2019 10:56 AM [facility] Disclaimer The performance characteristics of all immunohistochemical and indirect immunofluorescence stains (if any) cited in this report were determined by the Histopathology Laboratory of [facility]. Some of these tests were developed by our own laboratory and have not been cleared or approved by the US Food and Drug Administration. The FDA does not require this test to go through premarket FDA review. These tests are used for clinical purposes. They should not be regarded as investigational or for research. This laboratory is certified under the Clinical Laboratory Improvement Amendments (CLIA) as qualified to perform high complexity clinical laboratory testing. This case has been personally reviewed and interpreted by the attending (teaching) pathologist. 04/30/2019 10:56 AM [facility] Embedded Images 04/30/2019 10:56 AM [facility] Pathology/Cytolo gy MEDIASTINAL MASS / Unknown 04/26/2019 8:00 AM CDT 04/29/2019 3:44 PM CDT us Gray Garrison MD LAB - PATHOLOGY/CYTOLOGY ORDER MACY Final Result Performing Organization Address City/State/[facility] Co de Phone Number [facility] [address] [phone] documented in this encounter Visit Diagnoses Not on filedocumented in this encounter Care Teams Parlor Maid Relationship Specialty Start Date End Date Rich Limon MD [address] [place] [id number] PCP - General 04/29/19 documented as of this encounter
--- OUTSIDE RECORDS SUMMARY | 2025-09-19 15:47 | XMS_ITS | Encounter Summary ---
Author Organization [facility] Address [address] [place] [address] Care Team Providers Care Felling Bucking Supervisor Name Role Phone Melinda Odonnell Primary Care Provider [phone] Encounter Details Date Type Department Care Team (Late st Contact Info) Description 11/28/2023 JumpTimet Message Enc [facility] Medical Group Family & Internal Medicine [address] [address] Melinda Odonnell FNP [facility] [place], [place] [id number] Neck/back pain Social History Tobacco Use Types Packs/Day Years [...] Answer Date Recorded Patient Health Questionnaire-2 Score 1 11/27/2023 Comments No Sex and Gender Information Value Date Recorded Sex Assigned at Female 12/31/2024 2:46 PM NETWORKS COMPUTER CONSULTANT Legal Sex Female 9:37 AM CDT Gender Identity Not on file Sexual Orientation Not on file documented as of this encounter Progress Notes * REE Devi - 11/28/2023 1:11 PM CST I believe she only needs neck. ORKS COMPUTER CONSULTANT documented in this encounter Plan of Treatment Upcoming Encounters Date Type Department Care Team (Late st Contact Info) Description 10/27/2025 1:30 PM NETWORKS COMPUTER CONSULTANT Appointment [facility] [address] [address] Marija Escobar, GOLF CLUB WEIGHTER [address] [place], [place] [phone] 02/23/2026 9:00 AM CDT Office Visit [facility] [address] [place], [place] [phone] Behzad Cuellar MD [address] [facility] [address] [place] [address] documented as of this encounter Visit Diagnoses Not on filedocumented in this encounter Additional Health Concerns Infection Onset Date Last Indicated Resolved Time COVID-19 Rule Out 06/18/2024 06/18/2024 06/18/2024 11:47 AM CDT COVID-19 Confirmed 06/18/2024 06/18/2024 12:32 AM CDT Assessment Noted Time PHQ-9 Depression Total Score: 4 11/27/19 24 12:04 PM NETWORKS COMPUTER CONSULTANT documented as of this encounter Care Teams Felling Bucking Supervisor Relationship Specialty Start Date End Date Melinda Odonnell FNP [facility] [place] [address] PCP - General Nurse Practitioner Family 04/25/19 documented as of this encounter
--- OUTSIDE RECORDS SUMMARY | 2025-09-19 15:47 | XMS_ITS | Clinical Summary ---
Author Organization [facility] Address [address] [place] [id number] Care Team Providers Care Weaving Supervisor Name Role Phone Melinda Odonnell LINOLEUM PRINTER Primary Care Provider [phone] Allergies Active Allergy Reactions Criticality Noted Date Comments Azithromycin Rash Low 05/27/2019 Cefaclor Rash,Hives,GI Upset Medium 05/13/2019 Erythromycin Hives,GI Upset Medium 05/13/2019 Penicillins Rash Medium 05/13/2019 Tape Itching,Redness Low 10/04/2019 Medications cetirizine 10 MG tablet Take 1 tablet (10 mg total) by mouth daily. Active vitamin D3, cholecalciferol , 5000 UNITS capsule Take 1 capsule (125 mcg total) by mouth daily. Active albuterol sulfate HFA (PROAIR HFA) 108 (90 Base) MCG/ACT inhalerIndicati ons:Moderate asthma without complication, unspecified whether persistent (HHS/HCC) Inhale 2 puffs into the lungs every 6 (six) hours as needed for Wheezing. 18 g 11 2 Active tiotropium (SPIRIVA RESPIMAT) 2.5 MCG/ACT inhaler (SPIRIVA RESPIMAT)Indica tions:Moderate asthma without complication, unspecified whether persistent (HHS/HCC) Inhale 2 puffs into the lungs daily. Please provide assembled. 4 g 2 3 Active albuterol (ACCUNEB) 0.63 MG/3ML nebulizer solutionIndicat ions:Moderate asthma without complication, unspecified whether persistent (HHS/HCC) Take 3 mLs (0.63 mg total) by nebulization every 4 (four) hours as needed for Wheezing or Shortness of breath. 1440 mL 2 3 Active ondansetron (ZOFRAN) 4 MG tabletIndicatio ns:Nausea Take 1 tablet (4 mg total) by mouth every 4 (four) hours as needed for Nausea. 30 tablet 1 4 Active metroNIDAZOLE (METROGEL) 1 % gel APPLY A SMALL FILM TO AFFECTED AREAS DAILY 5 Active tiZANidine (ZANAFLEX) 2 MG tablet TAKE 1 TO 2 TABLETS BY MOUTH THREE TIMES DAILY NEEDED 5 Active LORazepam (ATIVAN) 0.5 MG tabletIndicatio ns:Panic attacks TAKE 1 TABLET(0.5 MG) BY MOUTH EVERY 8 HOURS NEEDED FOR ANXIETY 30 tablet 1 5 Active escitalopram (LEXAPRO) 10 MG tabletIndicatio ns:Anxiety and depression Take 1 tablet (10 mg total) by mouth daily. 90 tablet 1 5 Active metFORMIN (GLUCOPHAGE) 500 MG tabletIndicatio ns:Class 2 severe obesity due to excess calories with serious comorbidity and body mass index (BMI) of 37.0 to 37.9 in adult,PCOS (polycystic ovarian syndrome) Take 2 tablets (1,000 mg total) by mouth 2 (two) times daily with meals. 360 tablet 1 5 Active Active Problems Problem Noted Date Diagnosed [...] lymph nodes of multiple katina ons 05/13/2019 Resolved Problems Problem Noted Date Diagnosed Date Resolved Date COVID-19 06/18/2024 02/17/2025 Need for COVID-19 vaccine 08/25/2021 COVID 07/27/2021 02/17/2025 BMI 45.0-49.9, adult 04/12/2021 022 Fever, unspecified fever cause 12/04/2019 04/12/2021 Lack of energy 12/04/2019 04/04/2025 Need for prophylactic vaccin ation against Streptococcus pneumoniae (pneumococcus) 10/09/2019 07/10/2020 Acute non-recurrent frontal sinusitis 07/02/2019 04/12/2021 SOB (shortness of breath) 07/02/2019 Urinary frequency 05/29/2019 04/04/2025 Encounters Date Type Department Care Team Description 07/01/2025 MyChart Message Enc [facility] Family & Internal Medicine [address] [address] Melinda Odonnell FNP Medical clearance for surgery 06/27/2025 Results Follow-Up [facility] Internal [address] [address] Rhea Alvarez MA PROTIME/INR, VENOUS, PARTIAL THROMBOPLASTIN TIME,PTT 06/24/2025 8:55 AM CDT - 06/24/2025 11:59 PM CDT Hospital Encounter [facility] Laboratory [address] [place] [address] Karley Moreira, DO Discharge Disposition: Home or Self Care (Routine Discharge) 06/24/2025 Travel 06/23/2025 9:00 AM CDT Office Visit [facility] Family & Internal [address] [address] Karley Moreira, DO Pre-Op Exam (Pt is here today for pre-op surgical clearance for C6 - C7 . Surgery is not yet scheduled. Has work up needed paperwork . ) 06/23/2025 - 06/23/2025 11:59 PM CDT Hospital Encounter [facility] [address] Karley Moreira, DO Discharge Disposition: Home or Self Care (Routine Discharge) 06/23/2025 Travel 06/20/2025 MyChart Message Enc [facility] Family & Internal Medicine [address] [address] Melinda Odonnell, REE Medical clearance for surgery from Last 3 Months Immunizations Immunization Administration Dates Next Due Influenza (Generic) 07/30/2020 Influenza Adult (Generic) 07/29/2019 Pneumococcal (Prevnar 13) 10/07/2019 Pneumococcal (Prevnar 20) 01/06/2023 Tdap (Generic) 04/12/2017 Family History Medical History Relation Comments Diabetes Father Heart Attack Father Heart Disease Father Hypertension Father Kidney Disease Father Mental Health Father Open Heart Father Diabetes Maternal Grandfather Heart Attack Maternal Grandfather Cancer Maternal Grandmother BREAST Asthma Mother Diabetes Paternal Grandfather Alcohol Abuse Paternal Grandmother Relation Status Comments Father Alive Maternal Grandfather Maternal Grandmother Mother Alive Paternal Grandfather Paternal Grandmother Alive Social History Tobacco Use Types Packs/Day Years Used Date Smoking Tobacco: Never Passive Smoke Exposure: Past Smokeless Tobacco: Never Tobacco Cessation:Counseling Given: Yes Alcohol Use Standard Drinks/Week Comments Yes 3.3 [...] Sex Assigned at Female 12/31/2024 2:46 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 Legal Sex Female 9:37 AM CDT Gender Identity Not on file Sexual Orientation Not on file Last Filed Vital Signs Vital Sign Reading Time Taken Comments Blood Pressure 108/82 06/23/2025 9:03 AM CDT Pulse 80 06/23/2025 9:03 AM CDT Temperature 36.9 C (98.5 F) 06/23/2025 9:03 AM CDT Respiratory Rate 16 06/23/2025 9:03 AM CDT Oxygen Saturation 98% 06/23/2025 9:03 AM CDT Inhaled Oxygen Concentration - - Weight 108 kg (238 lb) 06/23/2025 9:03 AM CDT Height 167.6 cm (5' 6) 06/23/2025 9:03 AM CDT Body Mass Index 38.41 06/23/2025 9:03 AM CDT Plan of Treatment Upcoming Encounters Date Type Department Care Team (Late st Contact Info) Description 10/27/2025 1:30 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 PROFESSOR Appointment [facility] [address] [facility] [place], [place] [id number] Marija Escobar NP [address] [place] [address] 02/23/2026 9:00 AM CDT Office Visit [facility] [address] [place], [place] [id number] Behzad Cuellar MD Three [facility] [address] [place], [place] [id number] Health Maintenance Due Date Last Done Comments Cervical Cancer Screening Pa p Smear (Age 30 to 64) Every 3 Years 1985 Annual Physical 1988 HPV Vaccines (1 - 3-dose SCD M series) 2012 Cervical Cancer Screening Pa p with HPV Testing (Age 30 to 64) Every 5 Years 2015 COVID-19 Vaccine (2024-2 6 season) 2025 Influenza Adult (#1) 2025 07/30/2020, 07/29/2019 Mammogram Screening 10/30/2025 11/28/2022, 11/05/2021, 08/11/2020 Postponed from 2025 (Going to Outside Clinic) Cervical Cancer Screening with HPV 04/04/2026 Postponed from 03/30 (Going to Outside Clinic) Hepatitis B Vaccines (1 of 3 - 19+ 3-dose series) 04/04/2026 Postponed from 10/2003 (Patient/Guardian Refusal) DTaP, Tdap and Td Vaccines ( 2 - Td or Tdap) 04/12/2027 04/12/2017 Pneumococcal Vaccine: Pediatrics (0 to 5 Years) and At-Risk Patients (6 to 49 Years) Completed 01/06/2023, 10/07/2019 PHQ-2 (Physician [place]) Completed 04/04/2025 Hepatitis C Completed 06/23/2025, 04/16/2025 Hepatitis A Vaccines Aged Out No long er eligible based on patient's age to complete this topic Meningococcal B Vaccine Aged Out No l onger eligible based on patient's age to complete this topic Meningococcal Vaccine Aged Out No mason rita eligible based on patient's age to complete this topic RSV Immunizations Under 20 Months Aged Out No longer eligible b ased on patient's age to complete this topic Procedures Procedure Name Priority Date/Time Associated Diagnosis Comments HC PTT Routine 06/24/2025 9:05 AM CDT Pre-op testing HC PROTHROMBIN TIME (PT) Routine 025 9:05 AM CDT Pre-op testing CULTURE, COLONY COUNT, URINE Routine 06/23/2025 9:45 AM CDT Pre-op testing CBC W/DIFF AUTOMATED Routine 06/23/2025 9:45 AM CDT Pre-op testing COMPREHENSIVE METABOLIC PANEL Routine 06/23/2025 9:45 AM CDT Pre-op testing SED RATE, ERYTHROCYTE, AUTO Routine 06/23/2025 9:45 AM CDT Pre-op testing VITAMIN D, 25 [place] Routine 06/23/2025 9:45 AM CDT Vitamin D deficiency HEPATITIS PANEL,ACUTE Routine 06/23/2025 9:45 AM CDT Pre-op testing HIV 1 ANTIGEN(S), WITH HIV-1 AND HIV-2 ANTIBODIES Routine 06/23/2025 9:45 AM CDT Pre-op testing HEMOGLOBIN, GLYCOSYLATED Routine 025 9:45 AM CDT Pre-op testing HCG QUANT (SERUM)-CHORIONIC GONADOTROPIN Routine 06/23/2025 9:45 AM CDT Pre-op testing URINALYSIS, AUTO, COMPLETE Routine 06/23/2025 9:45 AM CDT Pre-op testing ELECTROCARDIOGRAM (NON MIDMARK ACQUIRED) Routine 06/23/2025 9:14 AM CDT Pre-op testing MAMMOGRAM GENERIC (SCAN ORDER) 11/28/2022 from Last 3 Months or Most Recently Relevant to Health Maintenance Results * PARTIAL THROMBOPLASTIN TIME,PTT (06/24/2025 9:05 AM CDT) PTT 28.4 25.1 - 36.5 SEC 06/24/2025 9:42 AM CDT [facility] 06/24/2025 9:05 AM CDT us Karley Moreira DO LABORATORY Final Result [facility] [address] [place] [address], [place] [phone] * PROTIME/INR, VENOUS (06/24/2025 9:05 AM CDT) PROTIME 11.6 9.1 - 12.4 SEC 06/24/2025 9:42 AM CDT [facility] INR 1.0 06/24/2025 9:42 AM CDT [facility] Comment: Recommend INR ranges for Oral Anticoagulant Therapy: Mechanical Cardiac Values 2.5-3.5 All others indication 2.0-3.0 06/24/2025 9:05 AM CDT us Karley Moreira DO LABORATORY Final Result [facility] [address] [place] [address], [place] [phone] * HIV 1 ANTIGEN(S), WITH HIV-1 AND HIV-2 ANTIBODIES (06/23/2025 9:45 AM CDT) HIV 1/2 AB+ HIV1 P24 AG NON-REACTI VE NON-REACTI VE 06/23/2025 8:33 PM CDT [facility] Comment:HIV 1 p24 Ag and HIV 1/ HIV 2 Ab not detected. 06/23/2025 9:45 AM CDT us Karley Moreira DO LABORATORY Final Result Performing Organization Address [facility] Co de Phone Number [facility] [address] [place] [address], [place] [phone] * (ABNORMAL) HEMOGLOBIN, GLYCOSYLATED (06/23/2025 9:45 AM CDT) Pathologist [facility] HGB A1C 5.4 4.5 - 6.2 % 06/23/2025 6:05 PM CDT [facility] ESTIMATED AVG GLUCOSE 108(H) 74 - 106 MG/DL 06/23/2025 6:05 PM CDT [facility] 06/23/2025 9:45 AM CDT Karley Moreira DO LABORATORY Final Result Performing Organization Address City/[facility] Co de Phone Number [facility] [address] [place] [address], [place] [phone] * (ABNORMAL) URINALYSIS (06/23/2025 9:45 AM CDT) [facility] Signature COLOR (U) YELLOW 06/23/2025 3:45 PM CDT [facility] TRANSPARENCY CLEAR CLEAR 06/23/2025 3:45 PM CDT [facility] SPECIFIC GRAVITY (U) 1.020 1.003 - 1.040 06/23/2025 3:45 PM CDT [facility] U PH 6.5 5.0 - 9.0 06/23/2025 3:45 PM CDT [facility] PROTEIN RANDOM (U) TRACE(A) NEGATIVE 06/23/2025 3:45 PM CDT [facility] GLUCOSE (U) NEGATIVE NEGATIVE 06/23/2025 3:45 PM CDT [facility] KETONES MG/DL (U) NEGATIVE NEGATIVE 06/23/2025 3:45 PM CDT [facility] BILIRUBIN (U) NEGATIVE NEGATIVE 06/23/2025 3:45 PM T [facility] BLOOD (U) NEGATIVE NEGATIVE 06/23/2025 3:45 PM T [facility] UROBILINOGEN 0.2 0.0 - 2.0 EU/DL 06/23/2025 3:45 PM CDT [facility] NITRITES NEGATIVE NEGATIVE 06/23/2025 3:45 PM T [facility] LEUKOCYTES (U) NEGATIVE NEGATIVE 06/23/2025 3:45 PM CDT [facility] RBC/HPF 0-3 0 - 3 /HPF 06/23/2025 3:45 PM CDT [facility] WBC/HPF 0-3 0 - 3 /HPF 06/23/2025 3:45 PM CDT [facility] EPI/HPF 0-3 /HPF 06/23/2025 3:45 PM CDT [facility] BACTERIA (U) TRACE(A) NONE SEEN 06/23/2025 3:45 PM CDT [facility] MUCUS FEW 06/23/2025 3:45 PM CDT [facility] URINE SPECIMEN OBTAINED BY CLEAN CATCH PROCEDURE / Unknown 06/23/2025 9:45 AM CDT us Karley Moreira DO URINE ORDERABLES Final Result Performing Organization Address [facility] Co de Phone Number [facility] [address] [place] [address], [place] [phone] * URINE BACTERIA CULTURE (06/23/2025 9:45 AM CDT) SPEC DESCRIPTION URINE CLEAN CATCH 06/23/2025 9:45 AM CDT [facility] SPECIAL REQUESTS NO SPECIAL REQUEST 06/23/2025 9:45 AM CDT [facility] CULTURE RESULT FEW CONTAMINANTS 05/31 8:28 AM CDT [facility] URINE SPECIMEN OBTAINED BY CLEAN CATCH PROCEDURE / Unknown 06/23/2025 9:45 AM CDT 06/23/2025 5:07 PM CDT us Karley Moreira DO MICROBIOLOGY - GENERAL ORDERABL ES Final Result Performing Organization Address City/[facility] Co de Phone Number [facility] [address] [place] [address], [phone] * SED RATE, ERYTHROCYTE (ESR) (06/23/2025 9:45 AM CDT) ESR 8 0 - 19 MM/HR 06/23/2025 3:08 PM CDT [facility] 06/23/2025 9:45 AM CDT us Karley Moreira DO LABORATORY Final Result Performing Organization Address City/[facility] Co de Phone Number [facility] [address] [place] [address], * COMPREHENSIVE METABOLIC PANEL (06/23/2025 9:45 AM CDT) [facility] SODIUM S/P/B 141 136 - 145 MMOL/L 06/23/2025 3:32 PM CDT [facility] POTASSIUM S/P/B 4.4 3.5 - 5.1 MMOL/L 06/23/2025 3:32 PM CDT -[facility] CHLORIDE S/P/B 103 98 - 107 MMOL/L 06/23/2025 3:32 PM CDT [facility] CO2 27.4 21 - 32 MMOL/L 06/23/2025 3:32 PM CDT [facility] GLUCOSE 93 70 - 99 MG/DL 06/23/2025 3:32 PM CDT [facility] BUN 11 7 - 18 MG/DL 06/23/2025 3:32 PM CDT [facility] CREATININE S/P/B 0.59 0.55 - 1.02 MG/DL 06/23/2025 3:32 PM CDT [facility] CALCIUM S/P/B 9.2 8.4 - 10.5 MG/DL 06/23/2025 3:32 PM CDT [facility] BILIRUBIN TOTAL S/P/B 0.4 0.2 - 1.0 MG/DL 06/23/2025 3:32 PM CDT [facility] ALKALINE PHOSPHATASE S/P/B 47 37 - 98 U/L 06/23/2025 3:32 PM CDT [facility] AST 23 15 - 37 U/L 06/23/2025 3:32 PM CDT [facility] ALT 55 14 - 59 U/L 06/23/2025 3:32 PM CDT [facility] TOTAL PROTEIN S/P/B 6.8 6.4 - 8.2 G/DL 06/23/2025 3:32 PM CDT [facility] ALBUMIN S/P/B 3.9 3.4 - 5.0 G/DL 06/23/2025 3:32 PM CDT [facility] ANION GAP 10.6 5 - 15 MMOL/L 06/23/2025 3:32 PM CDT [facility] Comment:REFERENCE RANGE NOT ESTABLISHED OSMOLALITY (CALC) 291 MOSM/KG 025 3:32 PM CDT [facility] Comment:REFERENCE RANGE NOT ESTABLISHED GFR ESTIMATE >90 >90 ML/MIN/1. 73 M2 06/23/2025 3:32 PM CDT [facility] GFR NOTES GFR REFERENCE S: 06/23/2025 3:32 PM CDT [facility] Comment: THE ESTIMATED GFR IS CALCULATED USING THE 2020 CKD-EPI EQUATION. THE FOLLOWING CATEGORIES FOR GRADING RENAL FUNCTION ARE RECOMMENDED BY THE INTERNATIONAL SOCIETY OF NEPHROLOGY (KDIGO 2012 CLINICAL PRACTICE GUIDELINE). G1,NORMAL OR HIGH: >89 ml/min/1.73 m2 G2,MILDLY DECREASED: 60-89 ml/min/1.73 m2 G3A,MILDLY TO MODERATELY DECREASED: 45-59 ml/min/1.73 m2 G3B,MODERATELY TO SEVERELY DECREASED: 30-44 ml/min/1.73 m2 G4,SEVERELY DECREASED: 15-29 ml/min/1.73 m2 G5,KIDNEY FAILURE: <15 ml/min/1.73 m2 06/23/2025 9:45 AM CDT us Karley Moreira DO LABORATORY Final Result [facility] [address] [place] [address], [place] [phone] * HEPATITIS PANEL,ACUTE (06/23/2025 9:45 AM CDT) HEPATITIS B SURFACE AG NON-REACT GLEN NON-REACT GLEN 06/23/2025 8:33 PM CDT [facility] Comment:HBsAg NOT DETECTED. HEP B CORE IGM NON-REACT GLEN NON-REACT GLEN 06/23/2025 8:33 PM CDT [facility] Comment: IgM ANTI HBc NOT DETECTED. DOES NOT EXCLUDE THE POSSIBILITY OF EXPOSURE TO OR INFECTION WITH HBV. NO RETEST REQUIRED. HIGH DOSES OF BIOTIN MAY INTERFERE WITH THIS TEST RESULT. CORRELATION TO CLINICAL HISTORY AND PRESENTATION RECOMMENDED. HAV IGM NON-REACT GLEN NON-REACT GLEN 06/23/2025 8:33 PM CDT [facility] Comment: IgM ANTI HAV NOT DETECTED. DOES NOT EXCLUDE THE POSSIBILITY OF EXPOSURE TO OR INFECTION WITH HAV. LEVELS OF IgM ANTI HAV MAY BE BELOW THE CUTOFF IN EARLY INFECTION. HEPATITIS C AB NON-REACT GLEN NON-REACT GLEN 06/23/2025 8:33 PM CDT [facility] Comment: ANTIBODIES TO HCV NOT DETECTED. DOES NOT EXCLUDE THE POSSIBILITY OF EXPOSURE TO HCV. 06/23/2025 9:45 AM CDT Karley Moreira DO LABORATORY Final Result Performing Organization Address [facility] de Phone Number [facility] [address] [place] [address], [phone] * HCG QUANT (SERUM)-CHORIONIC GONADOTROPIN (06/23/2025 9:45 AM CDT) HCG QUANTITATIVE <1 MIU/ML 06/23/20 5:22 PM CDT [facility] Comment: <5 IS NEGATIVE 5-25 IS BORDERLINE >25 IS POSITIVE ASSAY PERFORMED BY CHEMILUMINESCENCE METHODOLOGY USING SIEM[employer]AG[employer]. PATIENT RESULTS DETERMINED BY ASSAYS USING DIFFERENT MANUFACTURERS FOR METHODS MAY NOT BE COMPARABLE. 06/23/2025 9:45 AM CDT Karley Moreira DO LABORATORY Final Result Performing Organization Address [facility] Co de Phone Number [facility] [address] [place] [address], [phone] * (ABNORMAL) CBC W/DIFF AUTOMATED (06/23/2025 9:45 AM CDT) [facility] Signature WBC 6.76 4.00 - 10.80 x10'3/uL 06/23/2025 3:03 PM CDT [facility] RBC 4.59 4.10 - 5.40 x10'6/uL 06/23/2025 3:03 PM CDT [facility] HGB 13.8 12.0 - 16.0 G/DL 06/23/2025 3:03 PM CDT [facility] HCT 42.1 36.0 - 47.0 % 06/23/2025 3:03 PM CDT [facility] MCV 91.7 78.0 - 100.0 FL 06/23/2025 3:03 PM CDT [facility] MCH 30.1 27.0 - 31.0 PG 06/23/2025 3:03 PM CDT [facility] MCHC 32.8(L) 33.0 - 36.0 G/DL 06/23/2025 3:03 PM T [facility] RDW 12.1 11.5 - 14.5 % 06/23/2025 3:03 PM CDT [facility] PLT 315 150 - 350 x10'3/uL 06/23/2025 3:03 PM T [facility] MPV 11.0(H) 7.4 - 10.4 FL 06/23/2025 3:03 PM T [facility] DIFFERENTIAL TYPE AUTOMATED DIFFERENTIAL 06/23/2025 3:03 PM T [facility] NEUTROPHILS % 61.7 % 06/23/2025 3:03 PM CDT [facility] LYMPHOCYTES % 29.3 % 06/23/2025 3:03 PM CDT [facility] MONOCYTES % 5.6 % 06/23/2025 3:03 PM CDT [facility] EOSINOPHILS % 2.5 % 06/23/2025 3:03 PM CDT [facility] BASOPHILS % 0.6 % 06/23/2025 3:03 PM CDT [facility] IMMATURE GRANS % 0.3 % 06/23/2025 3:03 PM CDT [facility] ABS. NEUTROPHILS 4.17 1.60 - 8.30 x10'3/uL 06/23/2025 3:03 PM CDT [facility] ABS. LYMPHOCYTES 1.98 0.80 - 4.70 x10'3/uL 06/23/2025 3:03 PM CDT [facility] ABS. MONOCYTES 0.38 0.00 - 1.50 x10'3/uL 06/23/2025 3:03 PM CDT [facility] ABS. EOSINOPHILS 0.17 0.00 - 0.40 x10'3/uL 06/23/2025 3:03 PM CDT [facility] ABS. BASOPHILS 0.04 0.00 - 0.20 x10'3/uL 06/23/2025 3:03 PM CDT [facility] ABS. IMMATURE GRANULOCYTES 0.02 0.00 - 0.03 x10'3/uL 06/23/2025 3:03 PM CDT [facility] 06/23/2025 9:45 AM CDT us Karley Moreira DO LABORATORY Final Result [facility] [address] [place] [address], * (ABNORMAL) VITAMIN D, 25 [place] (06/23/2025 9:45 AM CDT) VITAMIN D 25 HYDROXY TOTAL S/P/B 29.7(L) 30 - 100 NG/ML 06/23/2025 3:32 PM CDT [facility] Comment: DEFICIENT <20 INSUFFICIENT 20-30 SUFFICIENT 30-100 06/23/2025 9:45 AM CDT Karley Moreira DO LABORATORY Final Result [facility] [address] [place] [address], * ELECTROCARDIOGRAM (NON MIDMARK ACQUIRED) (06/23/2025 9:14 AM CDT) 06/23/2025 9:14 AM CDT Narrative [facility] - 07/22/2025 8:03 AM CDT [place] [address] [place] [address] Test Date: 2025-06-23 Pat Name: ESTELITA ECHOLSS Department: 171 Room: Gender: Female 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 Procedure Note Karley Moreira, - 07/22/2025 [facility] [address] 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 Karley Moreira DO PROCEDURES-ORDERABLE NO CHARGE Final Result [facility] * MAMMOGRAM GENERIC (11/28/2022) Anatomical Region Laterality Modality Other 11/28/2022 us [facility] Scanned SCANNING Final Resu lt from Last 3 Months or Most Recently Relevant to Health Maintenance Insurance [facility] Advance Directives Documents on File Type Date Recorded Patient Roof Plumber Expl anation Legal Documents 10/21/2024 5:34 PM Care Teams Weaving Supervisor Relationship Specialty Start Date End Date Melinda Odonnell FNP [address] [place] [id number] PCP - General Nurse Practitioner Family 04/25/19
--- OUTSIDE RECORDS SUMMARY | 2025-09-19 15:47 | XMS_ITS | Clinical Summary ---
Author Organization [facility] Address [address] [place] [address] Care Team Providers Care Quality Director Name Role Phone Melinda Odonnell NP Primary Care Provider + [phone] Nitish Calderon MD Unavailable [phone] Sita Reddy NP Unavailable Allergies Active Allergy Reactions Criticality Noted Date Comments Adhesive Itching,Redness Low 10/04/2019 Cefaclor Hives,Stomach upset Medium 05/13/2019 Erythromycin Hives,Stomach upset Medium 05/13/2019 Penicillins Rash Medium 05/13/2019 Medications cetirizine (ZyrTEC) 10 mg tablet Take 1 tablet (10 mg total) by mouth daily Active albuterol HFA (PROVENTIL HFA,VENTOLIN HFA,PROAIR HFA) 90 mcg/actuation inhaler INL 2 PFS ITL Q 6 H PRF WHZ 11 06/27/20 19 Active LORazepam (ATIVAN) 0.5 mg tabletIndicatio ns:Insomnia Take 1 tablet (0.5 mg total) by mouth nightly as needed for anxiety 08/04/20 22 Active spironolactone (ALDACTONE) 100 mg tablet Take 1 tablet (100 mg total) by mouth daily 02/09/20 23 Active escitalopram (LEXAPRO) 10 mg tablet Take 1 tablet (10 mg total) by mouth daily 30 tablet 09/04/20 23 Active oxyCODONE (ROXICODONE) 5 mg immediate release tabletIndicatio ns:Pain Take 1 tablet (5 mg total) by mouth every 4 (four) hours as needed for pain for up to 10 doses 10 tablet 06/03/[address] (PROTONIX) 40 mg EC tabletIndicatio ns:Treatment of Non-Bleeding Gastric Disorder Take 1 tablet (40 mg total) by mouth 2 (two) times a day 60 tablet 1 06/03/20 24 Active prochlorperazin e (COMPAZINE) 10 mg tabletIndicatio ns:Hodgkin lymphoma of lymph nodes of multiple regions, unspecified Hodgkin lymphoma type (HCC) Take 1 tablet (10 mg total) by mouth every 6 (six) hours as needed for nausea or vomiting Use first for nausea 30 tablet 3 05/13/20 19 019 Discontinued Active Problems Problem Noted Date Diagnosed Date [...] in remission. Follows onc outpatient for monitoring Immunizations Immunization Administration Dates Next Due Influenza, Quadrivalent, Isabel l Culture-based MDCK, Preservative Free, Antibiotic Free, Intramuscular 07/29/2019 Influenza, Unspecified 07/30/2020 Pneumococcal Conjugate PCV 13 10/07/2019 Pneumococcal Conjugate Pcv20 01/06/2023 Tdap 04/12/2017 Surgical History Surgery Date Site/Laterality Comments PORT PLACEMENT CHEST >5 YEARS 05/15/2019 N/A SECTION TONSILLECTOMY 1991 PORT REMOVAL 10/04/2019 N/A Medical History Medical History Date Comments Asthma Irritable bowel syndrome Polycystic ovary syndrome Cancer (HCC) Hodgkins Lymphom a Family History Medical History Relation Name Comments No Known Problems Daughter Wes Diabetes Father Naeem Basal cell carcinoma Father's Brother 1 Bay Kidney cancer Father's Brother 2 Abimael Thyroid cancer Father's Sister Demetra follicular No Known Problems Maternal Grandfather Flako Breast cancer Maternal Grandmother Juanita COD at 46 Pituitary adenoma Maternal Great-Grandmother Mat-Mat Great-Grandmother No Known Problems Mother Lisa Non-Hodgkin's Lymphoma Other 1 Mat 1stC once-rmvd [place], healthy at age 10 Breast cancer Other 2 MMGrAunt Breast cancer Other 3 Mat-Pat Great-Grandmother Pancreatic cancer Paternal Great-Grandmother Pat-Pat Great-Grandmother, COD Relation Name Status Comments Daughter Wes Alive Father Naeem Alive Father's Brother 1 Bay Alive Father's Brother 2 Abimael Alive Father's Sister Demetra Alive Maternal Grandfather Flako Alive Maternal Grandmother Juanita (Age 46) Maternal Great-Grandmother Mother Lisa Alive Other 1 Mat 1stC once-rmvd Alive Other 2 MMGrAunt Alive Other 3 (Age 88) Paternal Grandfather Keaton (Age 94) Paternal Grandmother Lila (Age 81) Paternal Great-Grandmother Sister Marilu Alive Social History Tobacco Use Types Packs/Day Years Used Date Smoking Tobacco: Never Smokeless Tobacco: Never Alcohol Use Standard Drinks/Week Comments Yes 2 (1 standard drink = 0.6 oz pur e alcohol) Personal Safety Answer Date Recorded Have you ever been in or are you currently in a harmful physical or emotional relationship or is someone making you feel afraid or unsafe? Denies 06/13/2024 Comments Unknown Sex and Gender Information Value Date Recorded Sex Assigned at Not on file Legal Sex Female 12:10 PM CDT Gender Identity Not on file Sexual Orientation Not on file Last Filed Vital Signs Vital Sign Reading Time Taken Comments Blood Pressure 138/90 09/02/2024 9:22 AM [employer] Pulse 84 09/02/2024 9:22 AM [employer] Temperature 36.5 C (97.7 F) 09/02/2024 9:22 AM [employer] Respiratory Rate 16 09/02/2024 9:22 AM [employer] Oxygen Saturation 96% 09/02/2024 9:22 AM [employer] Inhaled Oxygen Concentration - - Weight 107.9 kg (237 lb 14.4 oz) 09/02/2024 9:22 AM [employer] Height 167.6 cm (5' 5.98) 06/02/2024 7:35 AM CD T Body Mass Index 38.42 06/02/2024 7:35 AM CDT Plan of Treatment Health Maintenance Due Date Last Done Comments Breast Cancer Screening-Mammogram 1985 Cervical Cancer Screening 1985 Depression Screening 1985 Varicella Vaccines (1 of 2 - 13+ 2-dose series) 1998 Regular Well Visit/Exam 18-64 2003 Zoster Vaccine (1 of 2) 2004 HPV Vaccines (1 - 3-dose SCDM series) 2012 Influenza Vaccine (#1) 2025 07/30/2020, 2018 DTaP/Tdap/Td Vaccine (2 - Td or Tdap) 04/12/2027 Hepatitis B Screening Completed 05/13/2019 Hepatitis C Screening Completed 05/13/2019 Pneumococcal vaccine <65 Completed 01/06/2023, 1206/2019 Medical Devices Implanted Type Area Air Saw Operator Device Identifier Shelf Expiration Date Model / Serial / Lot Ang[employer] [id number] Xcela 8fr 1.6mm 1 Lumen Power Injectable Attach Catheter Fill - [id number] - [id number] Implanted:Qty: 1 on 05/15/2019 at [facility] Catheter Right: Chest [employer] 12/11/2023 [id number] / [id number] / Procedures Procedure Name Priority Date/Time Associated Diagnosis Comments HEPATITIS C ANTIBODY Routine 05/13/2019 1:50 PM CDT Hodgkin lymphoma of lymph nodes of multiple regions, unspecified Hodgkin lymphoma type (HCC) from Last 3 Months or Most Recently Relevant to Health Maintenance Results * Hepatitis C antibody (05/13/2019 1:50 PM CDT) Hep C Ab Nonreactive Nonreactive CHARLA AGUAYO Comment: Interpretive Data Positive results should be confirmed by a molecular method. If positive, a second separately collected sample should be submitted for Hepatitis C Virus (HCV) RNA Detection and Quantitation by Real-Time Reverse Junior Systems Engineer-PCR (RT-PCR). Current interpretive data was last revised on 2016. Blood specimen (specimen) 05/13/2019 1:50 PM CDT 05/13/2019 3:33 PM CDT Sita rodriguez [facility] MICROBIOLOGY - GENERAL ORDERABLES Edited Result - Final CHARLA AGUAYO [facility] Department [place] [address] from Last 3 Months or Most Recently Relevant to Health Maintenance [place] For more information, please contact: [phone] * Full Code (Latest Code Status on File) Date Activated Date Inactivated Comments 06/02/2024 8:30 AM 06/03/2024 7:20 PM Care Teams Quality Director Relationship Specialty Start Date End Date Melinda Odonnell NP [address] [place] [id number] PCP - General 12/30/19 Nitish Calderon MD [address] [facility] [address] [place] [address] Medical Oncologist/Staff Sonographer Medical Oncology 12/28/20 Sita Reddy NP [address] [facility] [address] [place] [address] Nurse Practitioner Medical Oncology 12/29/20
--- OUTSIDE RECORDS SUMMARY | 2025-09-19 15:47 | XMS_ITS | Encounter Summary ---
Author Organization [facility] Address [address] [place] [id number] Care Team Providers Care Harness Rigger Name Role Phone Melinda Odonnell Primary Care Provider [phone] Encounter Details Date Type Department Care Team (Late Contact Info) Description 12/01/2020 MyChart Message Enc [facility] Family & Internal Medicine [address] [address] Melinda Odonnell FNP [address] [place] [address] [phone] RE: FW: Question Social History Tobacco Use [...] Sex Assigned at Female 12/31/2024 2:46 PM FUR CUTTER Legal Sex Female 9:37 AM CDT Gender Identity Not on file Sexual Orientation Not on file COVID-19 Exposure Response Date Recorded In the last month, have you been in contact with someone who was confirmed or suspected to have Coronavirus / COVID-19? Unable to assess 11/25/2020 12:52 PM FUR CUTTER documented as of this encounter Plan of Treatment Upcoming Encounters Date Type Department Care Team (Late Contact Info) Description 10/27/2025 1:30 PM FUR CUTTER [facility]ment [facility] [address] Marija Escobar NP [address] [place] [address] 02/23/2026 9:00 AM CDT Office Visit [facility] [address] [place] [address] Behzad Cuellar MD [address] [place] [address] documented as of this encounter Visit Diagnoses [...] Total Score: 4 11/29/19 20 8:55 AM FUR CUTTER documented as of this encounter Care Teams Harness Rigger Relationship Specialty Start Date End Date Melinda Odonnell FNP [address] [place] [address] PCP - General Nurse Practitioner Family 04/25/19 documented as of this encounter
[2025-09-19 15:50] VITALS: BP 125/81; PULSE 91; RESP 18; TEMP 36.6; O2SAT 100
--- NOTE | 2025-09-19 16:28 | ED.SKABFB ---
HPI - Skin/Abscess/Foreign Bdy General Chief complaint: Skin/Abscess/Foreign Body Stated complaint: L eye Time Seen by Provider: 09/19/25 16:04 Source: patient and RN notes reviewed Mode of arrival: ambulatory Limitations: no limitations History of Present Illness HPI narrative: 40-year-old female patient presents today with a 3-4 day history of a painful bump to the left nasal bridge. States she lanced the area once yesterday and once today with a needle at home, resulting in clear drainage. States she area has become more swollen and painful. She has applied some clindamycin lotion of her 's, and warm compresses without improvement. Denies history of abscesses, staph infections. Related Data Home Medications ?Medication ?Instructions ?Recorded ?Confirmed ?Last Taken ?Type escitalopram oxalate 10 mg tablet 10 mg PO DAILY 05/01/23 11/22/23 Unknown History lorazepam 0.5 mg tablet mg 11/22/23 11/22/23 Unknown History Allergies Allergy/AdvReac Type Severity Reaction Status Date / Time cefaclor Allergy Intermediate RASH, GI Verified 09/19/25 15:51 UPSET erythromycin base Allergy Intermediate RASH, GI Verified 09/19/25 15:51 UPSET Penicillins Allergy Intermediate RASH, GI Verified 09/19/25 15:51 UPSET adhesive tape Allergy Rash Verified 09/19/25 15:51 PMFSH Past Medical History Medical History Anxiety Elevated BP without diagnosis of hypertension Hodgkin lymphoma Mediastinal mass Microscopic hematuria Mild persistent asthma without complication PCOS (polycystic ovarian syndrome) Vitamin D deficiency, unspecified Family History Family History Father Diabetes mellitus Hypertension Family history of coronary artery disease Mother Asthma Other Family history of allergic disorder Family history of cardiovascular disease Family history of malignant neoplasm Social History Social History Smoking status: Never smoker Alcohol intake: current Gender identity (if verbalized by the patient): Female Comments At time of signature, I have reviewed and agree with nursing past medical, surgical, social and family history unless otherwise noted. Please see nursing chart for further information. There is no relevant family history pertinent to the presenting complaint Exam Narrative: GENERAL: Well-appearing, well-nourished, and in no acute distress. HEAD: Normocephalic, atraumatic. EYES: EOMI. No redness or drainage. Conjunctivae normal. ENT: Mucous membranes pink and moist. 0.5cm slightly raised, scabbed, erythematous lesion to the left nasal bridge, at the medial canthus of the left eye. No obvious additional facial swelling noted. No active drainage. NECK: Normal AROM. CHEST: No respiratory distress. EXTREMITIES: Normal range of motion. No edema. SKIN: Warm, dry, no rash. Capillary refill normal. Normal skin turgor. NEURO: No focal deficits. Alert and oriented x3. Gait steady. PSYCH: Normal affect. No signs of depression or anxiety. Course Course Level of Care: Express Care Visit Vital Signs Vital signs: Vital Signs Temperature 97.9 F 09/19/25 15:50 Pulse Rate 91 09/19/25 15:50 Respiratory Rate 18 09/19/25 15:50 Blood Pressure 125/81 09/19/25 15:50 Pulse Oximetry 100 09/19/25 15:50 Oxygen Delivery Room Air 09/19/25 15:50 Temperature 97.9 F 09/19/25 15:50 Pulse Rate 91 09/19/25 15:50 Respiratory Rate 18 09/19/25 15:50 Blood Pressure 125/81 09/19/25 15:50 Pulse Oximetry 100 09/19/25 15:50 Oxygen Delivery Room Air 09/19/25 15:50 Reviewed Procedures Abscess I/D face: Date of Incision: 09/19/25 Time of Incision: 16:25 Sedation/analgesia: none Local Anesthetic: none Technique: other (Scab removed with 18g needle tip. Expressed gently using 2 Qtips.) Irrigation: Yes (and cleansed with wound cleanser) Packing used?: none I&D Results: Pus and Blood Abcess I&D Additional Comments: Wound prepped with betadine. Wound culture obtained. Patient tolerated procedure well. MDM - Skin/Abscess/Foreign Bdy MDM Narrative Medical decision making narrative: 40-year-old female patient presents today with a 3-4 day history of a painful bump to the left nasal bridge. States she lanced the area once yesterday and once today with a needle at home, resulting in clear drainage. States she area has become more swollen and painful. She has applied some clindamycin lotion of her 's, and warm compresses without improvement. Denies history of abscesses, staph infections. Upon exam, 0.5cm slightly raised, scabbed, erythematous lesion to the left nasal bridge, at the medial canthus of the left eye. No obvious additional facial swelling noted. No active drainage. Lesion expressed gently using 2 qtips after scab removed with needle tip. See procedure note. Wound culture obtained. Patient will be placed on doxycycline to cover for MRSA. Also prescription for mupirocin to be applied directly to lesion. Patient agrees with plan. Vital signs stable. Anticipatory guidance and strict ED precautions given. Differential Diagnosis Differential diagnosis: Likely abscess of skin or subcutaneous tissue and cellulitis Critical Care Time Critical Care Time Critical Care Time: No Discharge Plan Discharge Clinical Impression: Abscess of external nose Patient Disposition: Home Condition: Stable Instructions: Antibiotic Form, Abscess (ED), Abscess Incision and Drainage (DC) Additional Instructions: Please take the doxycycline and using mupirocin as directed. Wash daily with soap and water. Do not continue to squeeze or try to express the area. Take Tylenol or ibuprofen if needed for discomfort. Follow-up with your PCP next week if symptoms are not improving. As discussed, if symptoms worsen to include increased swelling, pain, fever, please go to the ER immediately for further evaluation. Patient Language: New Zealander Prescriptions: New mupirocin 2 % ointment 1 applic topical BID 7 Days Qty: 22 0RF doxycycline hyclate 100 mg tablet 100 mg PO BID 7 Days Qty: 14 0RF No Action escitalopram oxalate 10 mg tablet 10 mg PO DAILY lorazepam 0.5 mg tablet Follow-up/Referrals: BRIGHT,NEERU TARANGO [Primary Care Provider] Time of Disposition: 16:31
== END 2025-09-19 16:34 | disposition home or self-care (01) ==
PROVIDERS: Emergency Provider Nurse Practitioner; PCP Nurse Practitioner Family
DX: J34.0 Abscess, furuncle and carbuncle of nose (principal); E28.2 Polycystic ovarian syndrome; E55.9 Vitamin D deficiency, unspecified; J45.909 Unspecified asthma, uncomplicated; F41.9 Anxiety disorder, unspecified; Z85.72 Personal history of non-Hodgkin lymphomas
CPT/HCPCS: 10060; 87070; 87205; 99213; G0463